=== PATIENT | female | born 1985 ===

== ENCOUNTER → 2020-04-02 | Outpatient (BNVA) | payer OTHER, SELFPAY | PROVIDERS: PCP Internal Medicine; Referring Provider Internal Medicine; Visit Provider Physician Assistant | DX: M25.562 Pain in left knee (principal); M25.462 Effusion, left knee; M25.473 Effusion, unspecified ankle; I10 Essential (primary) hypertension; Z98.890 Other specified postprocedural states | CPT/HCPCS: 99212; 99213 ==

== ENCOUNTER 2020-04-26 14:00 | Outpatient (RCR) | payer OTHER, SELFPAY ==
[2020-03-25 14:06] VITALS: BP 141/96; PULSE 86
--- NOTE | 2020-03-25 14:55 | MHC.PT.EP ---
[facility] [place] Office [place] Office [place] Office [address] Abiodun Irwin [address] [phone] F: [phone] F: [phone] F: [phone] F: [phone] Physical Therapy Plan of Care Date of Evaluation: 03/25/20 Diagnosis: S/P JULIO LEFT LE 02/18/20 Date of Surgery: 02/18/20 REMOVAL OF ORTHOPEDIC HARDWARE Assessment: RHINA IS A PLEASANT 34 YO FEMALE S/P JULIO LEFT LOWER EXTREMITY. UPON EXAM SHE DEMONSTRATES DECREASED KNEE ROM, DECREASED STRENGTH OF LE, ALTERED GAIT, DECREASED BALANCE AND INCREASED PAIN. FUNCTIONAL LIMITATIONS INCLUDE DECREASED TOLERANCE TO STAIRS, SQUATS, STATIC STANDING AND WALKING ON LEVEL AND UNEVEN SURFACES, DISRUPTED SLEEP AND DECREASED PARTICIPATION IN COMMUNITY ACTIVITY. SHE IS AN APPROPRIATE CANDIDATE FOR SKILLED PT TO ADDRESS PHYSICAL IMPAIRMENTS AND PROVIDE A TAILORED PROGRAM OF THERAPEUTIC ACTIVITIES TO PROMOTE OPTIMAL RETURN TO PLOF. Frequency and Duration: The patient will be seen 2 X WEEK FOR 5 WEEKS Short Term Goals: INDEPENDENT IN HEP AND SELF MANAGEMENT OF SYMPTOMS IN 2 WEEKS [employer] Manager Goals: TO DEMONSTRATE FULL KNEE ROM WITHOUT PAIN GREATER THAN 3/10 IN 5 WEEKS TO ASCEND AND DECEND STAIRS WITH RECIPROCAL GAIT AND PAIN NO GREATER THAN 3/10 IN 5 WEEKS TO PERFORM FULL FUNCTIONAL SQUAT WITH APPROPRIATE MECHANICS IN 5 WEEKS Treatment Plan: Modalities to reduce pain, spasms and effusion Manual therapy to restore motion and function Therapeutic exercise to improve strength and flexibility Neuromuscular re-education for posture and balance Therapeutic activities to return to functional activities of daily living Therapeutic Exercise Dynamic Therapeutic Activities Neuromuscular Re-ed Manual Therapies Joint Mobilization Taping Gait Home Exercise Program Patient Education Electrical Stimulation Iontophoresis Ultrasound Hot or Cold Pack Please sign and return to therapist. Thank you for your referral.
--- NOTE | 2020-05-13 14:52 | MHC.PT.DC ---
[facility] [place] Office [place] Office [place] Office [address] Abiodun Irwin [address] [phone] F: [phone] F: [phone] F: [phone] F: [phone] Physical Therapy Discharge Report Diagnosis: S/P JULIO LEFT LE 02/18/20 Date of Surgery: 02/18/20 REMOVAL OF ORTHOPEDIC HARDWARE (TIB/FIB) Date of Evaluation: 03/25/20 Date of Discharge: Treatments to Date: 7 Cancellations to Date: 2 No Shows to Date: 5 Discharge Status: Patient Elected to Stop Visit Non-compliance Discharge Summary: Pt WITH MULTIPLE NO SHOWS AND CANCELS, NO FURTHER VISITS SCHEDULED. STATUS IS UNKNOWN AND SHE IS DCed FROM OUR SERVICES AT THIS TIME. Electronically signed by: KATELYN ROCHA PT, DPT Please sign and return to therapist. Thank you for your referral.
== END 2020-06-04 10:52 | disposition other institution (70) ==
LOC: HO.PT 14:00
PROVIDERS: PCP Internal Medicine; Visit Provider Physician Assistant
DX: Z47.89 Encounter for other orthopedic aftercare (principal)
CPT/HCPCS: 97110; 97116; 97140; 97161; 97530

== ENCOUNTER → 2020-05-24 11:58 | Outpatient (BNVA) | payer OTHER, SELFPAY | PROVIDERS: PCP Internal Medicine; Visit Provider Orthopaedic Surgery | DX: T84.84XA Pain due to internal orthopedic prosthetic devices, implants and grafts, initial encounter (principal); Z98.890 Other specified postprocedural states | CPT/HCPCS: 99212 ==

== ENCOUNTER 2020-07-13 11:17 | Outpatient (REF) | payer OTHER, SELFPAY ==
[2020-07-14 08:41] LABS: Syphilis Screen Nonreactive (Nonreactive)
[2020-07-14 09:11] LABS: HIV AB/AG Nonreactive (Nonreactive); HIV Num 1 0.08 S/CO (0.00-0.99); Hepatitis B Surface Antigen Negative (Negative); ~HepC Num1 0.08 S/CO (0.00-0.79); ~Hepatitis C Antibody Nonreactive (Nonreactive)
[2020-07-14 09:30] LABS: BV Int Neg Control Negative (Negative); BV Int Pos Control Positive (Positive)
[2020-07-15 11:53] LABS: C. trachomatis RNA TMA NOT DETECTED (NOT DETECTED); N. gonorrhoeae RNA TMA NOT DETECTED (NOT DETECTED)
== END 2020-07-13 11:18 | disposition home or self-care (01) ==
LOC: HO.LAB 11:17
PROVIDERS: Advanced Practice Midwife; PCP Internal Medicine; Visit Provider Surgery
DX: N89.8 Other specified noninflammatory disorders of vagina (principal); R10.10 Upper abdominal pain, unspecified; K43.2 Incisional hernia without obstruction or gangrene; Z20.2 Contact with and (suspected) exposure to infections with a predominantly sexual mode of transmission; Z90.49 Acquired absence of other specified parts of digestive tract
CPT/HCPCS: 36415; 86780; 86803; 87340; 87389; 87480; 87491; 87510; 87591; 87660; 99212

== ENCOUNTER 2020-07-30 09:07 | Outpatient (REF) | payer OTHER, SELFPAY ==
[2020-08-05 06:07] LABS: HPV 16 RNA NOT DETECTED (NOT DETECTED); HPV mRNA E6/E7 rflx Detected (Not Detected)
== END 2020-07-30 09:08 | disposition home or self-care (01) ==
LOC: HO.LAB 09:07
PROVIDERS: PCP Internal Medicine; Visit Provider Advanced Practice Midwife
DX: Z01.419 Encounter for gynecological examination (general) (routine) without abnormal findings (principal); Z11.51 Encounter for screening for human papillomavirus (HPV); N87.0 Mild cervical dysplasia; N89.8 Other specified noninflammatory disorders of vagina; B37.3 Candidiasis of vulva and vagina; Z20.2 Contact with and (suspected) exposure to infections with a predominantly sexual mode of transmission
CPT/HCPCS: 36415; 87210; 87624; 87625; 88141; 88142

== ENCOUNTER 2020-08-05 07:39 | Day surgery (SDC) | payer OTHER, SELFPAY ==
[2020-07-30 09:07] VITALS: BMI 32.7
--- NOTE | 2020-08-04 10:11 | HO.ANESPROP2 ---
Documented by User: Catherine Zimmerman 08/04/20 10:12 HPI - Anesthesia Eval Consult details Narrative: 34yo F for Hernia Repair Incisional with Mesh Chronic opioids PMFSH Active Problems Active Problems: All Active Problems (Updated 07/13/20 @ 12:00 by CAROLYNN Duarte) History of removal of retained hardware (Acute) Tibial fracture (Acute) HAROON (generalized anxiety disorder) (Acute) Incisional hernia (Acute) Past Medical History Medical History Anxiety Asthma Depression HTN (hypertension) Insomnia Vertigo Family History Family History Father No problems noted. Mother No problems noted. Surgical History Surgical History History of ankle surgery (~01/2020) History of laparoscopic cholecystectomy History of surgery on arm History of tubal ligation History of umbilical hernia repair (~2018) Social History Social History Alcohol intake: never Smoking Status: Unknown if ever smoked Advance Directives Information Provided: No Current occupational status: unemployed Current occupation: [employer] Gender identity: female Meds Allergies Allergy/AdvReac Type Severity Reaction Status Date / Time No Known Allergies Allergy Verified 07/30/20 09:25 [No Known Allergies*] Home Medications Medication Instructions Recorded Confirmed Last Taken Type albuterol sulfate 90 mcg/actuation 2 inh INHALATION Q4H PRN 03/27/20 07/30/20 Unknown History aerosol inhaler alprazolam 0.5 mg tablet 0.5 mg PO BID PRN 03/27/20 07/30/20 08/05/20 06:45 History amitriptyline 150 mg tablet 150 mg PO BEDTIME 03/27/20 07/30/20 Unknown History clindamycin phosphate 1 % lotion 1 applic TOPICAL BID 03/27/20 07/30/20 Unknown History diclofenac sodium 75 mg 75 mg PO BID 03/27/20 07/30/20 Unknown History tablet,delayed release docusate sodium 100 mg capsule 100 mg PO DAILY 03/27/20 07/30/20 Unknown History lactulose 10 gram/15 mL oral 15 ml PO DAILY 03/27/20 07/30/20 Unknown History solution ondansetron HCl 8 mg tablet 8 mg PO BID 03/27/20 07/30/20 Unknown History oxycodone 5 mg tablet 5 mg PO QID PRN 03/27/20 07/30/20 Unknown History paroxetine HCl 40 mg tablet 40 mg PO DAILY 03/27/20 07/30/20 08/05/20 06:45 History sumatriptan succinate 50 mg tablet 50 mg PO BID PRN 03/27/20 07/30/20 Unknown History topiramate 25 mg tablet 25 mg PO BID 03/27/20 07/30/20 08/05/20 06:45 History topiramate 50 mg tablet mg PO 03/27/20 07/13/20 Unknown History zolpidem 10 mg tablet 10 mg PO BEDTIME PRN 03/27/20 07/30/20 Unknown History Exam Exam Date and Time: August 04, 2020 1011 Height,Weight and Vital Signs: Height 5 ft 6 in Weight 92 kg Pertinent Lab Results Pertinent Lab Results: Laboratory Tests 02/18/20 02/18/20 07:40 07:40 WBC 8.0 Hgb 11.1 L Hct 37.4 Plt Count 270 Sodium 139 Potassium 4.2 Chloride 104 BUN 9 Creatinine 0.86 Assessment and Plan Assessment Anesthesia Assessment: Chart Reviewed Documented by User: Asia Gaston 08/05/20 08:54 [facility] Past Medical History Medical History Anxiety Asthma Depression HTN (hypertension) Insomnia Vertigo Family History Family History Father No problems noted. Mother No problems noted. Family history of problems with anesthesia: No Surgical History Surgical History History of ankle surgery (~01/2020) History of laparoscopic cholecystectomy History of surgery on arm History of tubal ligation History of umbilical hernia repair (~2018) History of Problems with Anesthesia: No Social History Social History Alcohol intake: never Smoking Status: Unknown if ever smoked Advance Directives Information Provided: No Current occupational status: unemployed Current occupation: [employer] Gender identity: female Meds Allergies Allergy/AdvReac Type Severity Reaction Status Date / Time No Known Allergies Allergy Verified 07/30/20 09:25 [No Known Allergies*] Home Medications Medication Instructions Recorded Confirmed Last Taken Type albuterol sulfate 90 mcg/actuation 2 inh INHALATION Q4H PRN 03/27/20 07/30/20 Unknown History aerosol inhaler alprazolam 0.5 mg tablet 0.5 mg PO BID PRN 03/27/20 07/30/20 08/05/20 06:45 History amitriptyline 150 mg tablet 150 mg PO BEDTIME 03/27/20 07/30/20 Unknown History clindamycin phosphate 1 % lotion 1 applic TOPICAL BID 03/27/20 07/30/20 Unknown History diclofenac sodium 75 mg 75 mg PO BID 03/27/20 07/30/20 Unknown History tablet,delayed release docusate sodium 100 mg capsule 100 mg PO DAILY 03/27/20 07/30/20 Unknown History lactulose 10 gram/15 mL oral 15 ml PO DAILY 03/27/20 07/30/20 Unknown History solution ondansetron HCl 8 mg tablet 8 mg PO BID 03/27/20 07/30/20 Unknown History oxycodone 5 mg tablet 5 mg PO QID PRN 03/27/20 07/30/20 Unknown History paroxetine HCl 40 mg tablet 40 mg PO DAILY 03/27/20 07/30/20 08/05/20 06:45 History sumatriptan succinate 50 mg tablet 50 mg PO BID PRN 03/27/20 07/30/20 Unknown History topiramate 25 mg tablet 25 mg PO BID 03/27/20 07/30/20 08/05/20 06:45 History topiramate 50 mg tablet mg PO 03/27/20 07/13/20 Unknown History zolpidem 10 mg tablet 10 mg PO BEDTIME PRN 03/27/20 07/30/20 Unknown History Exam Height,Weight and Vital Signs: Vital Signs Temp Pulse Resp BP Pulse Ox 08/05/20 07:57 98.5 F 83 16 122/78 99 Airway Mallampati Class: II TM Dist: >3cm Neck ROM: Full Heart: RRR Lungs: CTAB Assessment and Plan Assessment Anesthesia Assessment: Anesthesia Plan Discussed and Chart Reviewed Final Anesthetic Review NPO: Yes ASA Class: II Final Preanesthetic Review: No Changes in Pt Med Stat, Meds/Allgs Chart Reviewed, Consent Obtained/Reviewed and Anes Risks/Benef Reviewed Patient Risk: Low Procedure Risk: Low Assessment/Block/Sedation in SS: Assess/Block/Sedation-SS Anesthetic Plan Anesthetic Plan: GA Disposition: Standard PACU
[2020-08-05] VITALS (14 sets, daily range): BP systolic 122–151; BP diastolic 76–98; PULSE 63–97; RESP 14–20; TEMP 36.6–36.9; O2SAT 96–100
--- NOTE | 2020-08-05 10:58 | P.OP_ITS ---
Operative Note Operative Note Date of Service: 08/05/20 Narrative: Preoperative diagnosis: Incisional hernia Postoperative diagnosis: Same Procedure: Repair of incisional hernia with mesh Surgeon: Wilfredo Lloyd MD Perpetual Inventory Clerk: Andra Galaviz PA-C Anesthesia: General LMA Indications for procedure 34-year-old female status post laparoscopic cholecystectomy presenting now with a lump in the upper midline at the epigastric incision consistent with an incisional hernia Operative findings: Incisional hernia at epigastric incision measuring approximately 3.5 cm Estimated blood loss: 10 mL Specimen: None Complications: None Procedure details patient was brought to the OR placed in a supine position. After administering general anesthesia the patient's abdomen was prepped with ChloraPrep and draped in a sterile fashion. A surgical time-out was called the consent confirmed. Patient received preoperative antibiotics and Venodyne boots were in place. Local anesthesia consisting of 0.25% Sensorcaine with epinephrine was infiltrated in the upper midline. Incision was carried down through subcutaneous tissue up to the hernia sac. The hernia sac was then dissected free and the hernia sac reduced into the preperitoneal space. Fascial edges were identified and excised down to healthy tissue. A large preperitoneal space was then created. The defect measured approximately 3.5 cm. An 8 cm round Ventralex mesh was then obtained. The mesh was deployed into the preperitoneal space and secured in 4 quadrants using a 1 Tycron suture. Fascia was then closed over the mesh using [id number] 1 Tycron sutures. Wounds were checked for hemostasis with electrocautery. The wounds were irrigated with saline solution and suctioned dry. Deep subcutaneous tissue was then reapproximated using interrupted 3-0 Polysorb sutures. Dermis was reapproximated using interrupted 3-0 Polysorb sutures. Skin was closed using a running subcuticular 4 0 Polysorb suture. Steri-Strips 2 x 2 gauze and Tegaderm were then applied. The patient tolerated procedure w ell. Sponge, instrument, needle counts reported as correct. Was transported to recovery room in stable condition.
--- NOTE | 2020-08-05 11:00 | P.BOP_ITS ---
Brief Operative Note Date of Service: 08/05/20 <HARI Reyes Last Filed: 08/05/20 11:02> Pre-op diagnosis: INCISIONAL HERNIA <HARI Reyes Last Filed: 08/05/20 11:02> Post-op diagnosis: same <HARI Reyes Last Filed: 08/05/20 11:02> Procedure: Repair of incisional hernia with mesh <HARI Reyes Last Filed: 08/05/20 11:02> Implants: Ventralex 8cm <HARI Reyes Last Filed: 08/05/20 11:02> Surgeon: ISRAEL GUTIÉRREZ MD <HARI Reyes Last Filed: 08/05/20 11:02> Anesthesia: GETA <HARI Reyes Last Filed: 08/05/20 11:02> Manager Of Business Operations: Andra Galaviz <HARI Reyes Last Filed: 08/05/20 11:02> Estimated blood loss (mL): 10 <HARI Reyes Last Filed: 08/05/20 11:02> Pathology: none sent <HARI Reyes Last Filed: 08/05/20 11:02> Condition: stable <HARI Reyes Last Filed: 08/05/20 11:02> Disposition: PACU <HARI Reyes Last Filed: 08/05/20 11:02>
--- NOTE | 2020-08-05 11:04 | MHC.SHP ---
Pre-Procedural Eval Section A The patient is an INPATIENT: No Changes since office visit: Yes Patient answered all questions; No Cold of Flu in the past 2 weeks, No New Medical Problems and No Changes in Medication The History & Physical has been completed within 30 days and I have reviewed it.: Yes Section B Chief Complaint: Incisional Hernia Allergies: Allergies Allergy/AdvReac Type Severity Reaction Status Date / Time No Known Allergies Allergy Verified 07/30/20 09:25 [No Known Allergies*] Plan Diagnosis/Plan: Unchanged I have reviewed the history and physical and performed a pertinent physical examination on my patient. No changes have occurred unless specified.
[2020-08-05] MEDS: fentaNYL citrate/PF 100 MCG/2 ML VIAL 25 MCG IVPUSH ×4 (11:22→11:58)
[2020-08-05] MEDS: oxyCODONE HCl Immed Release 5 MG TABLET PO (11:23)
== END 2020-08-05 13:17 | disposition home or self-care (01) ==
PROVIDERS: PCP Internal Medicine; Visit Provider Surgery
PROC: (CPT 49560; principal; 2020-08-05 09:10)
DX: K43.2 Incisional hernia without obstruction or gangrene (principal); I10 Essential (primary) hypertension; J45.909 Unspecified asthma, uncomplicated; F32.9 Major depressive disorder, single episode, unspecified; Z90.49 Acquired absence of other specified parts of digestive tract; Z98.51 Tubal ligation status; Z79.899 Other long term (current) drug therapy
CPT/HCPCS: 49560; 49568; C1781; J0690; J1100; J1170; J1885; J2250; J2405; J3010

== ENCOUNTER → 2020-08-13 11:31 | Outpatient (BNVA) | payer OTHER, SELFPAY | PROVIDERS: PCP Internal Medicine; Visit Provider Surgery | DX: K43.2 Incisional hernia without obstruction or gangrene (principal) | CPT/HCPCS: 99212 ==

== ENCOUNTER 2020-09-07 13:31 | Outpatient (REF) | payer OTHER, SELFPAY | END 2020-09-07 13:32 | disposition home or self-care (01) | LOC: HO.LAB 13:31 | PROVIDERS: PCP Internal Medicine; Visit Provider Surgery | DX: R87.612 Low grade squamous intraepithelial lesion on cytologic smear of cervix (LGSIL) (principal); Z09 Encounter for follow-up examination after completed treatment for conditions other than malignant neoplasm; Z87.19 Personal history of other diseases of the digestive system | CPT/HCPCS: 57454; 88305; 99212 ==

== ENCOUNTER → 2020-10-13 12:31 | Outpatient (BNVA) | payer OTHER, SELFPAY | PROVIDERS: PCP Internal Medicine; Visit Provider Physician Assistant | DX: M17.32 Unilateral post-traumatic osteoarthritis, left knee (principal) | CPT/HCPCS: 20610; 99212; J1040 ==

== ENCOUNTER 2020-10-13 19:22 | Emergency (ER) | payer OTHER, SELFPAY ==
--- NOTE | 2020-10-13 19:44 | PC.NURSE ---
awaiting hose builder services to arrive to triage
[2020-10-13 20:02] VITALS: BP 142/83; PULSE 83; RESP 19; TEMP 37.2; O2SAT 100; BMI 29.0
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
== END 2020-10-13 22:35 | disposition home or self-care (01) ==
PROVIDERS: Emergency Provider Emergency Medicine Emergency Medical Services; PCP Internal Medicine
DX: F33.1 Major depressive disorder, recurrent, moderate (principal); F41.1 Generalized anxiety disorder; F43.0 Acute stress reaction; Z79.899 Other long term (current) drug therapy
CPT/HCPCS: 99283

== ENCOUNTER 2020-11-23 12:29 | Outpatient (REF) | payer OTHER, SELFPAY ==
--- NOTE | ~2020-11-23 | XR_ITS ---
EXAMINATION: XR ELBOW, RIGHT XR HAND, RIGHT CLINICAL INFORMATION: Pain. COMPARISON: 01/30/2018 TECHNIQUE: Three views of the right hand and 3 views of the right elbow. FINDINGS: There is no evidence of acute fracture or dislocation of the right elbow. No elbow effusion is seen. There is some spurring about the coronoid process. No evidence of calcific epicondylitis. There is no evidence of acute fracture or dislocation of the right hand. Right hand joint spaces are maintained. Previous healed fracture seen involving the right 5th metacarpal head. There is some mild degenerative spurring involving the 5th distal interphalangeal joint. No erosive changes are identified. XR/XR elbow RT 2V IMPRESSION: No significant bony abnormality of the right elbow. No significant degenerative change of the right hand.
--- NOTE | ~2020-11-23 | XR_ITS ---
EXAMINATION: XR ELBOW, RIGHT XR HAND, RIGHT CLINICAL INFORMATION: Pain. COMPARISON: 01/30/2018 TECHNIQUE: Three views of the right hand and 3 views of the right elbow. FINDINGS: There is no evidence of acute fracture or dislocation of the right elbow. No elbow effusion is seen. There is some spurring about the coronoid process. No evidence of calcific epicondylitis. There is no evidence of acute fracture or dislocation of the right hand. Right hand joint spaces are maintained. Previous healed fracture seen involving the right 5th metacarpal head. There is some mild degenerative spurring involving the 5th distal interphalangeal joint. No erosive changes are identified. XR/XR hand RT 2V IMPRESSION: No significant bony abnormality of the right elbow. No significant degenerative change of the right hand.
== END 2020-11-23 12:30 | disposition home or self-care (01) ==
LOC: HO.XRAY 12:29
PROVIDERS: PCP Internal Medicine; Visit Provider Internal Medicine
DX: M25.521 Pain in right elbow (principal); M79.643 Pain in unspecified hand
CPT/HCPCS: 73070; 73120

== ENCOUNTER 2020-12-08 09:23 | Outpatient (REF) | payer OTHER, SELFPAY ==
--- NOTE | ~2020-12-08 | XR_ITS ---
EXAMINATION: LEFT SCAPULA AND LEFT SHOULDER CLINICAL INFORMATION: Left shoulder pain COMPARISON: None TECHNIQUE: Left shoulder 3 views. Scapula one view. FINDINGS: Left shoulder: There is no visible acute fracture, dislocation or subluxation. The glenohumeral and AC joint space is normal. No loose bodies or bony erosive changes seen. The soft tissues are normal. Left scapula: There is no visible fracture or bony abnormality. The soft tissues are normal. XR/XR scapula LT IMPRESSION: Unremarkable left shoulder and left scapula.
--- NOTE | ~2020-12-08 | XR_ITS ---
EXAMINATION: LEFT SCAPULA AND LEFT SHOULDER CLINICAL INFORMATION: Left shoulder pain COMPARISON: None TECHNIQUE: Left shoulder 3 views. Scapula one view. FINDINGS: Left shoulder: There is no visible acute fracture, dislocation or subluxation. The glenohumeral and AC joint space is normal. No loose bodies or bony erosive changes seen. The soft tissues are normal. Left scapula: There is no visible fracture or bony abnormality. The soft tissues are normal. XR/XR shoulder LT min 2V IMPRESSION: Unremarkable left shoulder and left scapula.
[2020-12-08 11:01] LABS: Alanine Aminotransferase 12 U/L (0-31); Albumin Level 4.5 g/dL (3.5-5.0); Alkaline Phosphatase 89 U/L (39-117); Anion Gap 12 (12-20); Aspartate Amino Transferase 14 U/L (5-31); Bilirubin Total 0.3 mg/dL (0.0-1.0); Blood Urea Nitrogen 9 mg/dL (9-16); Calcium 9.8 mg/dL (8.4-10.2); Carbon Dioxide 27 mmol/L (22-29); Chloride 106 mmol/L (96-108); Cholesterol 212 mg/dL; Estimated Glomerular Filt Rate > 60; Glucose Fasting 94 mg/dL (60-99); HDL Cholesterol 77 mg/dL; LDL Cholesterol Calculated 121 mg/dl; Potassium 4.6 mmol/L (3.3-5.1); Sodium 140 mmol/L (135-145); Total Protein 7.5 g/dL (6.5-8.0); Triglycerides 74 mg/dL
== END 2020-12-08 09:24 | disposition home or self-care (01) ==
LOC: HO.LAB 09:23
PROVIDERS: PCP Internal Medicine; Visit Provider Internal Medicine
DX: E78.5 Hyperlipidemia, unspecified (principal); I10 Essential (primary) hypertension
CPT/HCPCS: 36415; 73010; 73030; 80053; 80061

== ENCOUNTER → 2020-12-30 11:45 | Outpatient (BNVA) | payer OTHER, SELFPAY | PROVIDERS: Visit Provider Physician Assistant | DX: M17.32 Unilateral post-traumatic osteoarthritis, left knee (principal) | CPT/HCPCS: 20610; 99212; J1040 ==

== ENCOUNTER → 2021-01-17 10:05 | Outpatient (BNVA) | payer OTHER, SELFPAY | PROVIDERS: Visit Provider Orthopaedic Surgery | DX: M24.812 Other specific joint derangements of left shoulder, not elsewhere classified (principal) | CPT/HCPCS: 99212 ==

== ENCOUNTER 2021-01-27 14:40 | Outpatient (REF) | payer OTHER, SELFPAY ==
--- NOTE | ~2021-01-27 | MR_ITS ---
EXAMINATION: MRI LEFT SHOULDER WITHOUT CONTRAST CLINICAL INFORMATION: Decreased range of motion and left shoulder pain. COMPARISON: Radiograph dated 12/08/2020 TECHNIQUE: MR images of the shoulder were obtained on a 1.5 Sheron high-field strength scanner without intravenous contrast material. Of note, the coronal and axial fat saturated sequences were not actually performed with fat saturation which limits the sensitivity of the study for abnormalities. FINDINGS: ROTATOR CUFF: Intact. No muscle atrophy or fatty infiltration. BICEPS: Normal CORACOACROMIAL ARCH: The undersurface of the acromion is flat with no subacromial spur. The acromioclavicular joint is normal. LABRUM/CAPSULE: Normal. GLENOHUMERAL JOINT/MARROW: Normal. MR/MR shoulder LT wo con IMPRESSION: Normal MRI of the left shoulder. Unfortunately, technical issues on 2 image sequences do significantly limit the sensitivity of the study. Attempts will be made to recall the patient to repeat the appropriate sequences.
[2021-01-28 08:12] LABS: HBc Num1 0.07 S/CO (0.00-0.79); HIV AB/AG Nonreactive (Nonreactive); HIV Num 1 0.06 S/CO (0.00-0.99); Hepatitis B Core Antibody Nonreactive (Nonreactive); ~HepC Num1 0.08 S/CO (0.00-0.79); ~Hepatitis C Antibody Nonreactive (Nonreactive)
[2021-01-28 08:32] LABS: Syphilis Screen Nonreactive (Nonreactive)
== END 2021-01-27 14:41 | disposition home or self-care (01) ==
LOC: HO.MRI 14:40
PROVIDERS: Advanced Practice Midwife; PCP Internal Medicine; Visit Provider Orthopaedic Surgery
DX: Z01.84 Encounter for antibody response examination (principal); Z11.59 Encounter for screening for other viral diseases; Z11.4 Encounter for screening for human immunodeficiency virus [HIV]; M24.812 Other specific joint derangements of left shoulder, not elsewhere classified; R10.2 Pelvic and perineal pain; Z20.2 Contact with and (suspected) exposure to infections with a predominantly sexual mode of transmission
CPT/HCPCS: 36415; 73221; 86704; 86780; 86803; 87389

== ENCOUNTER 2021-01-27 14:43 | Outpatient (REF) | payer OTHER, SELFPAY ==
[2021-01-28 09:53] LABS: CT PCR NOT DETECTED (Not Detect.); NG PCR NOT DETECTED (Not Detect.)
[2021-01-28 10:08] LABS: BV Int Neg Control Negative (Negative); BV Int Pos Control Positive (Positive)
== END 2021-01-27 14:44 | disposition home or self-care (01) ==
LOC: HO.LAB 14:43
PROVIDERS: Advanced Practice Midwife; Visit Provider Advanced Practice Midwife
DX: R10.2 Pelvic and perineal pain (principal); Z20.2 Contact with and (suspected) exposure to infections with a predominantly sexual mode of transmission
CPT/HCPCS: 87480; 87491; 87510; 87591; 87660

== ENCOUNTER 2021-02-08 19:06 | Outpatient (REF) | payer OTHER, SELFPAY | END 2021-02-08 19:07 | disposition home or self-care (01) | LOC: HO.MRI 19:06 | PROVIDERS: Visit Provider Orthopaedic Surgery | DX: Z13.89 Encounter for screening for other disorder (principal) ==

== ENCOUNTER 2021-02-12 03:28 | Emergency (ER) | payer OTHER, SELFPAY ==
[2021-02-12 03:36] VITALS: BP 154/102; PULSE 72; RESP 15; TEMP 36.8; O2SAT 100; BMI 27.3
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
== END 2021-02-12 05:48 | disposition home or self-care (01) ==
PROVIDERS: Emergency Provider Emergency Medicine; PCP Internal Medicine
DX: G89.29 Other chronic pain (principal); M25.562 Pain in left knee; I10 Essential (primary) hypertension; F17.210 Nicotine dependence, cigarettes, uncomplicated; Z79.899 Other long term (current) drug therapy
CPT/HCPCS: 99283; 99284

== ENCOUNTER 2021-07-25 11:06 | Outpatient (REF) | payer OTHER, SELFPAY ==
[2021-07-25 11:37] LABS: MANUAL DIFF FLAG NO
[2021-07-25 12:07] LABS: Basophils Percent Auto 0.4 % (0-2); Eosinophils Absolute Auto 0.1 X10*3/uL (0.0-0.4); Eosinophils Percent Auto 1.2 % (0-4); Hematocrit 34.6 % (37.0-47.0); Hemoglobin 9.6 g/dl (12.0-16.0); Imm Gran Abs Auto 0.03 X10*3/uL (0.00-0.03); Imm Gran Pct Auto 0.4 % (0.0-0.4); Lymphocytes Percent Auto 24.8 % (20-40); Mean Corpuscular HGB Conc 27.7 g/dl (31.0-35.0); Mean Corpuscular Hemoglobin 20.4 pg (27.0-33.0); Mean Corpuscular Volume 73.5 fL (80.0-98.0); Mean Platelet Volume 11.4 fL (9.4-12.3); Monocytes Absolute Auto 0.5 X10*3/uL (0.1-1.2); Monocytes Percent Auto 6.1 % (2-11); Neutrophils Absolute Auto 5.5 x10*3/uL (2.0-8.3); Neutrophils Percent Auto 67.1 % (45-73); Platelet Count 295 X10*3/uL (160-400); Red Blood Count 4.71 X10*6/uL (4.20-5.50); Red Cell Distribution Width 16.6 % (11.0-16.0); White Blood Count 8.2 X10*3/uL (4.8-10.8)
[2021-07-25 12:51] LABS: Alanine Aminotransferase 14 U/L (0-31); Albumin Level 4.3 g/dL (3.5-5.0); Alkaline Phosphatase 67 U/L (39-117); Anion Gap 11 (12-20); Aspartate Amino Transferase 16 U/L (5-31); Bilirubin Total 0.3 mg/dL (0.0-1.0); Blood Urea Nitrogen 13 mg/dL (9-16); Calcium 9.6 mg/dL (8.4-10.2); Carbon Dioxide 26 mmol/L (22-29); Chloride 109 mmol/L (96-108); Estimated Glomerular Filt Rate > 60; Glucose Random 96 mg/dL (60-115); Lipase 18 U/L (8-78); Potassium 4.4 mmol/L (3.3-5.1); Sodium 142 mmol/L (135-145); Total Protein 7.2 g/dL (6.5-8.0)
== END 2021-07-25 11:07 | disposition home or self-care (01) ==
LOC: HO.LAB 11:06
PROVIDERS: PCP Internal Medicine; Visit Provider Nurse Practitioner Acute Care
DX: R10.9 Unspecified abdominal pain (principal)
CPT/HCPCS: 36415; 80053; 83690; 85025

== ENCOUNTER 2021-08-01 13:52 | Outpatient (REF) | payer OTHER, SELFPAY ==
[2021-08-02 03:00] LABS: CT PCR NOT DETECTED (Not Detect.); NG PCR NOT DETECTED (Not Detect.)
[2021-08-02 09:05] LABS: BV Int Neg Control Negative (Negative); BV Int Pos Control Positive (Positive)
[2021-08-02 09:09] LABS: HBsAGNum1 0.16 S/CO (0.00-0.99); Hepatitis B Surface Antigen Negative (Negative); ~HepC Num1 0.09 S/CO (0.00-0.79); ~Hepatitis C Antibody Nonreactive (Nonreactive)
[2021-08-02 09:14] LABS: HIV AB/AG Nonreactive (Nonreactive); HIV Num 1 0.06 S/CO (0.00-0.99)
[2021-08-04 12:36] LABS: HPV mRNA E6/E7 rflx Detected (Not Detected)
[2021-08-04 12:37] LABS: HPV 16 RNA NOT DETECTED (NOT DETECTED)
[2021-08-05 08:44] LABS: Syphilis Screen Nonreactive (Nonreactive)
== END 2021-08-01 13:53 | disposition home or self-care (01) ==
LOC: HO.LAB 13:52
PROVIDERS: PCP Internal Medicine; Visit Provider Advanced Practice Midwife
DX: Z01.419 Encounter for gynecological examination (general) (routine) without abnormal findings (principal); Z11.51 Encounter for screening for human papillomavirus (HPV); Z11.4 Encounter for screening for human immunodeficiency virus [HIV]; Z20.2 Contact with and (suspected) exposure to infections with a predominantly sexual mode of transmission; Z87.42 Personal history of other diseases of the female genital tract
CPT/HCPCS: 36415; 86780; 86803; 87340; 87389; 87480; 87491; 87510; 87591; 87624; 87625; 87660; 88142

== ENCOUNTER 2021-08-02 16:13 | Outpatient (REF) | payer OTHER, SELFPAY ==
--- NOTE | ~2021-08-02 | US_ITS ---
EXAMINATION: US ABDOMEN COMPLETE CLINICAL INFORMATION: Abdominal pain. COMPARISON: Abdominal ultrasound dated from 09/02/2019. TECHNIQUE: Real-time imaging of the abdominal viscera. FINDINGS: PANCREAS: Normal. ABDOMINAL AORTA: The proximal, mid, and distal segments are normal in caliber. INFERIOR VENA CAVA: Visualized portions are normal. LIVER: The liver measures 17 cm in length and demonstrates increased parenchymal echogenicity which limits evaluation of focal lesions. However, accounting for these limitations no focal abnormalities are identified. No intrahepatic biliary ductal dilatation. GALLBLADDER: Normal. The gallbladder is physiologically distended without evidence of stones, sludge, polyps, wall thickening or pericholecystic fluid. COMMON BILE DUCT: Normal in caliber measuring 0.4 cm in diameter. RIGHT KIDNEY: Normal. No hydronephrosis. No renal calculi or focal parenchymal lesions. The kidney measures 10 cm in maximum dimension. LEFT KIDNEY: Normal. No hydronephrosis. No renal calculi or focal parenchymal lesions. The kidney measures 10 cm in maximum dimension. SPLEEN: Normal. The spleen measures 9 cm in maximum dimension. FREE FLUID: None. US/US abdomen complete IMPRESSION: Mild hepatomegaly with increased parenchymal echogenicity suggesting the presence of hepatic steatosis and/or hepatocellular disease. Otherwise, normal examination.
== END 2021-08-02 16:14 | disposition home or self-care (01) ==
LOC: HO.US 16:13
PROVIDERS: Visit Provider Nurse Practitioner Acute Care
DX: R10.9 Unspecified abdominal pain (principal)
CPT/HCPCS: 76700

== ENCOUNTER 2021-08-12 10:48 | Emergency (ER) | payer OTHER, SELFPAY ==
[2021-08-12 11:03] VITALS: BP 178/92; PULSE 61; RESP 16; TEMP 36.7; O2SAT 100; BMI 28.7
[2021-08-12 12:14] LABS: MANUAL DIFF FLAG NO
[2021-08-12 12:17] LABS: Basophils Percent Auto 0.2 % (0-2); Eosinophils Absolute Auto 0.1 X10*3/uL (0.0-0.4); Eosinophils Percent Auto 1.3 % (0-4); Hematocrit 33.3 % (37.0-47.0); Hemoglobin 9.3 g/dl (12.0-16.0); Imm Gran Abs Auto 0.02 X10*3/uL (0.00-0.03); Imm Gran Pct Auto 0.2 % (0.0-0.4); Lymphocytes Absolute Auto 2.4 X10*3/uL (1.2-4.9); Mean Corpuscular HGB Conc 27.9 g/dl (31.0-35.0); Mean Corpuscular Hemoglobin 20.3 pg (27.0-33.0); Mean Corpuscular Volume 72.7 fL (80.0-98.0); Mean Platelet Volume 11.2 fL (9.4-12.3); Monocytes Absolute Auto 0.7 X10*3/uL (0.1-1.2); Neutrophils Absolute Auto 5.3 x10*3/uL (2.0-8.3); Neutrophils Percent Auto 62.3 % (45-73); Platelet Count 319 X10*3/uL (160-400); Red Blood Count 4.58 X10*6/uL (4.20-5.50); Red Cell Distribution Width 17.1 % (11.0-16.0); White Blood Count 8.5 X10*3/uL (4.8-10.8)
[2021-08-12 12:31] LABS: Anion Gap 10 (12-20); Blood Urea Nitrogen 10 mg/dL (9-16); Calcium 9.3 mg/dL (8.4-10.2); Carbon Dioxide 27 mmol/L (22-29); Chloride 107 mmol/L (96-108); Creatinine Clr Calc Pharmacy 110.7; Estimated Glomerular Filt Rate > 60; Glucose Random 93 mg/dL (60-115); Sodium 140 mmol/L (135-145)
[2021-08-12 16:09] VITALS: BP 159/92; PULSE 68; RESP 16; TEMP 36.9; O2SAT 100
[2021-08-12 16:12] VITALS: BP 172/97; PULSE 54
[2021-08-12 16:14] VITALS: BP 175/96; PULSE 58
--- NOTE | 2021-08-12 16:14 | ECG_ITS ---
Test Reason : DIZZYNESS Blood Pressure : / mmHG Vent. Rate : 059 BPM Atrial Rate : 059 BPM P-R Int : 172 ms QRS Dur : 082 ms QT Int : 414 ms P-R-T Axes : -01 038 017 degrees QTc Int : 409 ms Sinus bradycardia Otherwise normal ECG When compared with ECG of 09-AUG-2018 09:04, No significant change was found Referred By: Zara Lawrence Electronically Signed By:FABIOLA VILLEGAS MD
--- NOTE | 2021-08-12 16:14 | ED.RECABL ---
HPI - Recheck/Abnormal Lab/Rx General Chief Complaint: Recheck/Abnormal Lab/Rx Stated Complaint: DIZZY SWEATING LOW BLOOD COUNT Time Seen by Provider: 08/12/21 16:06 Source: patient Mode of arrival: ambulatory Limitations: no limitations History of Present Illness HPI narrative: Patient comes to the emergency room complaining of low hemoglobin. Patient states she got a phone call from her primary care physician today. Patient states he was approximately 9.6. Patient states that she has noted that sometimes she feels dizzy, occasionally sees spots. Patient denies any recent bleeding. Patient states that she has been told that she is anemic, patient recently started taking oral iron Related Data Home Medications Medication Instructions Recorded Confirmed alprazolam 0.5 mg tablet 0.5 mg PO BID PRN 03/27/20 08/01/21 sumatriptan succinate 50 mg tablet 50 mg PO BID PRN 03/27/20 08/01/21 topiramate 50 mg tablet mg PO 03/27/20 08/01/21 sertraline 100 mg tablet 100 mg PO DAILY 11/23/20 08/01/21 trazodone 150 mg tablet 150 mg PO BEDTIME 11/23/20 08/01/21 zolpidem 10 mg tablet 10 mg PO BEDTIME PRN 02/21/21 08/01/21 Previous Rx's Medication Instructions Recorded blood pressure test kit-medium #1 ea 08/12/20 ibuprofen 600 mg tablet 600 mg PO Q8H PRN #90 tab 09/21/20 lactulose 10 gram/15 mL oral 15 ml PO DAILY #1350 ml 02/03/21 solution naproxen 500 mg tablet (Naprosyn) 500 mg PO BID #20 tab 02/12/21 albuterol sulfate 90 mcg/actuation 2 puff INHALATION Q6H PRN 30 Days 03/21/21 aerosol inhaler (ProAir HFA) #8.5 g docusate sodium 250 mg capsule 250 mg PO DAILY PRN 30 Days #30 cap 05/26/21 hydroxyzine HCl 25 mg tablet 25 mg PO DAILY 30 Days #30 tab 06/29/21 ferrous sulfate 325 mg (65 mg 325 mg PO DAILY 90 Days #90 tab 07/25/21 iron) tablet omeprazole 20 mg capsule,delayed 20 mg PO DAILY #30 cap 07/25/21 release ondansetron 4 mg disintegrating 4 mg PO Q8H PRN #14 tab 07/25/21 tablet metronidazole 500 mg tablet 500 mg PO BID 7 Days #14 tab 08/02/21 hydrochlorothiazide 25 mg tablet 25 mg PO DAILY #30 tab 08/12/21 Allergies Allergy/AdvReac Type Severity Reaction Status Date / Time No Known Allergies Allergy Verified 08/01/21 14:05 [No Known Allergies*] Review of Systems Review of Systems: Constitutional : No Weight loss, No Fever, No Chills, No Night Sweats, No Fatigue, No Malaise ENT/Mouth : No Hearing loss, No Ear Pain, No Nasal Congestion, No Sinus Pain, No Hoarseness, No sore throat, No Rhinorrhea, No Swallowing Difficulty Eyes: No Eye Pain, No Swelling, No Redness, No Foreign Body, No Discharge, No Vision Changes Cardiovascular : No Chest Pain, No SOB, No Dyspnea on Exertion, No Orthopnea, No Edema, No Palpitations Respiratory : No Cough, No Sputum, No Wheezing, No Smoke Exposure, No Dyspnea Gastrointestinal : No Nausea, No Vomiting, No Diarrhea, No Constipation, No abdominal Pain, No Hematochezia, No Melena Genitourinary : no irregular bleeding, No Dysuria, No Urinary Frequency, No Hematuria, No Urinary Incontinence, No Urgency, No Flank Pain, No Urinary Flow Changes, No Hesitancy Musculoskeletal : No joint pain, No Myalgias, No Joint Swelling Skin : No Skin Lesions, No rash Neuro : No Weakness, No Numbness, No Paresthesias, No Loss of Consciousness, patient reports occasional episodes of dizziness and seeing spots, at this time none are present. No Headache Psych : Complaining of feeling anxious, denies depression, no SI or HI Heme/Lymph: Recent diagnosis of anemia, currently taking iron Endocrine : No Polyuria, No Polydipsia, No Temperature Intolerance [facility] Past Medical History Medical History Anxiety Anxiety and depression Asthma Depression Essential hypertension Hand pain HTN (hypertension) Insomnia Iron deficiency anemia Left shoulder pain Lumbar pain Migraines Moderate recurrent major depression Neck pain Right elbow pain Vertigo Surgical History History of ankle surgery (~01/2020) History of hernia surgery History of laparoscopic cholecystectomy History of surgery on arm History of tubal ligation History of umbilical hernia repair (~2019) Post-operative state Family History Family History Father Mental health disorder Mother No problems noted. Social History Social History Housing: Apartment Alcohol intake: current Alcohol intake frequency: holidays/special occasions only Patient Tobacco Use Status: Current someday Tobacco user Tobacco use type: Cigarette Cigarettes Per Day: 1 e-Cigarette/Vaping Use: Never Used Second Hand Smoke Exposure: Yes Advance Directives: No Advance Directives Information Provided: Yes service: No Current occupational status: disabled Gender identity: Female Physical Exam Vital Signs: Vital Signs: Last Vital Signs Temp 98.5 F 08/12/21 16:09 Pulse 60 08/12/21 16:15 Resp 16 08/12/21 16:09 BP 170/87 H 08/12/21 16:15 Pulse Ox 100 08/12/21 16:09 BMI result Body Mass Index 28.7 Const: Other: Appearance: Alert. Oriented X3. No acute distress. Anxious Eyes: Pupils equal, round and reactive to light. ENT: Pharynx normal. Neck: Normal inspection. Neck supple. No lymph nodes noted. No crepitus CVS: Normal heart rate and rhythm. Pulses normal. Normal S1 and S2, blood pressure 154 systolic Respiratory: No respiratory distress. Breath sounds normal. No Wheezing. No rales Abdomen: Soft and nontender. No rigidity. No distention. Skin: Skin warm and dry. Mild diffuse pallor. Normal skin turgor. Extremities: No lower extremity edema. No Lacerations. No Rash Neuro: Oriented X 3. No motor deficit. No sensory deficit. Moving all extermities. No slurred speech. Course Course Course Narrative: Patient's other static vitals are negative. EKG within normal limits. Patient is anemic but she really nausea, recently started on iron supplements. While patient was in the emergency room, patient's blood pressure was multiple times in the 170s. Patient states that whenever she goes to her PCP or the dentist, she is told that her blood pressures in the 150s. I discussed with the patient that she should be taking her blood pressure in different settings, such as a pharmacy or a shopping center. And then make a log and discuss it with her primary care physician. Patient states that she would prefer to be started on blood pressure medication. MDM - Recheck/Abnormal Lab/Rx Lab Data Result diagrams: 08/12/21 12:10 08/12/21 12:10 Labs: Lab Results 08/12/21 08/12/21 Range/Units 12:10 12:10 WBC 8.5 (4.8-10.8) X10*3/uL RBC 4.58 (4.20-5.50) X10*6/uL Hgb 9.3 L (12.0-16.0) g/dl Hct 33.3 L (37.0-47.0) % MCV 72.7 L (80.0-98.0) fL MCH 20.3 L (27.0-33.0) pg MCHC 27.9 L (31.0-35.0) g/dl RDW 17.1 H (11.0-16.0) % Plt Count 319 (160-400) X10*3/uL MPV 11.2 (9.4-12.3) fL Immature Gran % (Auto) 0.2 (0.0-0.4) % Neut % (Auto) 62.3 (45-73) % Lymph % (Auto) 28.0 (20-40) % [place] % (Auto) 8.0 (2-11) % Eos % (Auto) 1.3 (0-4) % Baso % (Auto) 0.2 (0-2) % Lymph # (Auto) 2.4 (1.2-4.9) X10*3/uL [place] # (Auto) 0.7 (0.1-1.2) X10*3/uL Eos # (Auto) 0.1 (0.0-0.4) X10*3/uL Baso # (Auto) 0.0 (0.0-0.2) X10*3/uL Abs Immat Gran (auto) 0.02 (0.00-0.03) X10*3/uL Absolute Neuts (auto) 5.3 (2.0-8.3) x10*3/uL Absolute Nucleated RBC 0.000 (0.0-0.012) X10*3/uL Nucleated RBC % (auto) 0.0 (0.0-0.2) /100WBC Sodium 140 (135-145) mmol/L Potassium 4.0 (3.3-5.1) mmol/L Chloride 107 (96-108) mmol/L Carbon Dioxide 27 (22-29) mmol/L Anion Gap 10 L (12-20) BUN 10 (9-16) mg/dL Creatinine 0.76 (0.5-1.4) mg/dL Estim Creat Clear Calc 110.7 Estimated GFR > 60 Random Glucose 93 (60-115) mg/dL Calcium 9.3 (8.4-10.2) mg/dL Discharge Plan Discharge Clinical Impression: Hypertension, Dizziness Patient Disposition: Home, Self-Care Instructions: Hypertension (ED) Additional Instructions: Please follow-up with your primary care physician tomorrow. If you have any worsening or new symptoms, please return to the emergency room or call 911 Prescriptions: New hydrochlorothiazide 25 mg tablet 25 mg PO DAILY Qty: 30 0RF No Action (DME) blood pressure test kit-medium Kit See Rx Instructions .ROUTE .MEDSUPPLY Qty: 1 0RF Rx Instructions: As directed ibuprofen 600 mg tablet 600 mg PO Q8H PRN (Reason: for pain) Qty: 90 1RF lactulose 10 gram/15 mL solution 15 ml PO DAILY Qty: 1350 1RF albuterol sulfate [ProAir HFA] 90 mcg/actuation HFA aerosol inhaler 2 puff inhalation Q6H PRN (Reason: shortness of breath or wheezing) 30 Days Qty: 8.5 6RF docusate sodium 250 mg capsule 250 mg PO DAILY PRN (Reason: constipation) 30 Days Qty: 30 3RF hydroxyzine HCl 25 mg tablet 25 mg PO DAILY 30 Days Qty: 30 2RF ferrous sulfate 325 mg (65 mg iron) tablet 325 mg PO DAILY 90 Days Qty: 90 0RF metronidazole 500 mg tablet 500 mg PO BID 7 Days Qty: 14 0RF naproxen [Naprosyn] 500 mg tablet 500 mg PO BID Qty: 20 0RF trazodone 150 mg tablet 150 mg PO BEDTIME 0RF sertraline 100 mg tablet 100 mg PO DAILY 0RF zolpidem 10 mg tablet 10 mg PO BEDTIME PRN0RF omeprazole 20 mg capsule,delayed release(DR/EC) 20 mg PO DAILY Qty: 30 0RF ondansetron 4 mg tablet,disintegrating 4 mg PO Q8H PRN (Reason: nausea and vomiting) Qty: 14 0RF sumatriptan succinate 50 mg tablet 50 mg PO BID PRN (Reason: Migraine Headache) 0RF topiramate 50 mg tablet PO 0RF alprazolam 0.5 mg tablet 0.5 mg PO BID PRN (Reason: Anxiety) 0RF
[2021-08-12 16:15] VITALS: BP 170/87; PULSE 60
== END 2021-08-12 16:53 | disposition home or self-care (01) ==
PROVIDERS: Emergency Provider Emergency Medicine; PCP Internal Medicine
DX: I10 Essential (primary) hypertension (principal); R42 Dizziness and giddiness; F17.200 Nicotine dependence, unspecified, uncomplicated
CPT/HCPCS: 36415; 80048; 85025; 93005; 99283; 99284

== ENCOUNTER 2021-09-14 08:45 | Outpatient (REF) | payer OTHER, SELFPAY ==
[2021-09-14 08:57] LABS: MANUAL DIFF FLAG NO
[2021-09-14 09:38] LABS: Basophils Percent Auto 0.2 % (0-2); Eosinophils Absolute Auto 0.1 X10*3/uL (0.0-0.4); Eosinophils Percent Auto 1.6 % (0-4); Hematocrit 41.8 % (37.0-47.0); Hemoglobin 11.8 g/dl (12.0-16.0); Imm Gran Abs Auto 0.02 X10*3/uL (0.00-0.03); Imm Gran Pct Auto 0.2 % (0.0-0.4); Lymphocytes Absolute Auto 1.9 X10*3/uL (1.2-4.9); Lymphocytes Percent Auto 23.1 % (20-40); Mean Corpuscular HGB Conc 28.2 g/dl (31.0-35.0); Mean Corpuscular Hemoglobin 21.9 pg (27.0-33.0); Mean Corpuscular Volume 77.7 fL (80.0-98.0); Monocytes Absolute Auto 0.6 X10*3/uL (0.1-1.2); Monocytes Percent Auto 7.6 % (2-11); Neutrophils Absolute Auto 5.6 x10*3/uL (2.0-8.3); Neutrophils Percent Auto 67.3 % (45-73); Platelet Count 236 X10*3/uL (160-400); Red Blood Count 5.38 X10*6/uL (4.20-5.50); Red Cell Distribution Width 20.4 % (11.0-16.0); White Blood Count 8.3 X10*3/uL (4.8-10.8)
[2021-09-14 10:03] LABS: Alanine Aminotransferase 18 U/L (0-31); Albumin Level 4.3 g/dL (3.5-5.0); Alkaline Phosphatase 59 U/L (39-117); Anion Gap 14 (12-20); Aspartate Amino Transferase 17 U/L (5-31); Bilirubin Total 0.4 mg/dL (0.0-1.0); Blood Urea Nitrogen 12 mg/dL (9-16); Calcium 9.9 mg/dL (8.4-10.2); Carbon Dioxide 26 mmol/L (22-29); Chloride 105 mmol/L (96-108); Cholesterol 202 mg/dL; Estimated Glomerular Filt Rate > 60; Glucose Fasting 96 mg/dL (60-99); HDL Cholesterol 68 mg/dL; Iron 57 mcg/dL (30-160); LDL Cholesterol Calculated 122 mg/dl; Percent Iron Saturation 13 % (15-50); Sodium 141 mmol/L (135-145); Total Iron Binding Capacity 439 mcg/dL (228-428); Total Protein 7.1 g/dL (6.5-8.0); Triglycerides 62 mg/dL; Unsaturated Iron Binding 382 ug/dL
== END 2021-09-14 08:46 | disposition home or self-care (01) ==
LOC: HO.LAB 08:45
PROVIDERS: PCP Internal Medicine; Visit Provider Internal Medicine
DX: D64.9 Anemia, unspecified (principal); E78.5 Hyperlipidemia, unspecified; G43.009 Migraine without aura, not intractable, without status migrainosus
CPT/HCPCS: 36415; 80053; 80061; 83540; 85025

== ENCOUNTER 2021-09-19 08:41 | Outpatient (REF) | payer OTHER, SELFPAY | END 2021-09-19 08:42 | disposition home or self-care (01) | LOC: HO.LAB 08:41 | PROVIDERS: PCP Internal Medicine; Visit Provider Obstetrics & Gynecology | DX: R87.810 Cervical high risk human papillomavirus (HPV) DNA test positive (principal); R87.610 Atypical squamous cells of undetermined significance on cytologic smear of cervix (ASC-US) | CPT/HCPCS: 57454; 81025; 88305 ==

== ENCOUNTER 2021-09-30 13:29 | Outpatient (REF) | payer OTHER, SELFPAY ==
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
== END 2021-09-30 13:30 | disposition home or self-care (01) ==
LOC: HO.XRAY 13:29
PROVIDERS: PCP Internal Medicine; Visit Provider Nurse Practitioner Family
DX: M54.50 Low back pain, unspecified (principal); M54.2 Cervicalgia; M62.838 Other muscle spasm
CPT/HCPCS: 72040; 72100; 99202

== ENCOUNTER → 2021-10-04 14:15 | Outpatient (BNVA) | payer OTHER, SELFPAY | PROVIDERS: PCP Internal Medicine; Visit Provider Obstetrics & Gynecology | DX: Z13.89 Encounter for screening for other disorder (principal) ==

== ENCOUNTER → 2021-10-07 09:39 | Outpatient (BNVA) | payer OTHER, SELFPAY | PROVIDERS: PCP Internal Medicine; Visit Provider Nurse Practitioner Family | DX: Z13.89 Encounter for screening for other disorder (principal) ==

== ENCOUNTER 2021-10-27 18:35 | Outpatient (REF) | payer OTHER, SELFPAY ==
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
== END 2021-10-27 18:36 | disposition home or self-care (01) ==
LOC: HO.MRI 18:35
PROVIDERS: Visit Provider Nurse Practitioner Family
DX: R93.7 Abnormal findings on diagnostic imaging of other parts of musculoskeletal system (principal); M54.2 Cervicalgia
CPT/HCPCS: 72141

== ENCOUNTER 2022-01-09 08:27 | Outpatient (REF) | payer OTHER, SELFPAY | END 2022-01-09 08:28 | disposition home or self-care (01) | LOC: HO.HOSX 08:27 | PROVIDERS: Visit Provider Physician Assistant | DX: Z13.89 Encounter for screening for other disorder (principal) ==

== ENCOUNTER 2022-01-13 06:50 | Emergency (ER) | payer OTHER, SELFPAY ==
[2022-01-13 06:59] VITALS: BP 122/81; PULSE 63; RESP 18; TEMP 36.8; O2SAT 99; BMI 28.3
[2022-01-13 07:28] LABS: Strep A Nucleic Acid Negative (Negative)
[2022-01-13 07:32] LABS: COVID-19 Test Negative (Negative)
[2022-01-13 08:26] LABS: IDNOW Serial# 9DB6401D; Influenza A Negative (Negative); Influenza B2 Negative (Negative)
--- NOTE | 2022-01-13 08:34 | ED.URI ---
HPI - URI/Sore Throat General Chief Complaint: Upper Respiratory Symptoms Stated Complaint: sore throat, stuffy nose Time Seen by Provider: 01/13/22 08:23 Source: patient Mode of arrival: ambulatory Limitations: no limitations History of Present Illness HPI Narrative: 36-year-old female who has a history of asthma presents with 1 day of sore throat. Daughter is here with similar symptoms. She denies any associated fever, cough, shortness of breath, chest pain, abdominal pain, vomiting, diarrhea, skin rash, neck pain or stiffness. Patient has had 3 COVID vaccinations Related Data Home Medications Medication Instructions Recorded Confirmed alprazolam 0.5 mg tablet 0.5 mg PO BID PRN Anxiety 03/27/20 09/30/21 sumatriptan succinate 50 mg tablet 50 mg PO BID PRN Migraine Headache 03/27/20 09/30/21 sertraline 100 mg tablet 100 mg PO DAILY 11/23/20 09/30/21 trazodone 150 mg tablet 150 mg PO BEDTIME 11/23/20 09/30/21 zolpidem 10 mg tablet 10 mg PO BEDTIME PRN 02/21/21 09/30/21 topiramate 50 mg tablet 50 mg PO DAILY PRN 09/30/21 09/30/21 Previous Rx's Medication Instructions Recorded blood pressure test kit-medium #1 ea 08/12/20 ibuprofen 600 mg tablet 600 mg PO Q8H PRN for pain #90 tabs 09/21/20 naproxen 500 mg tablet (Naprosyn) 500 mg PO BID #20 tabs 02/12/21 hydrochlorothiazide 25 mg tablet 25 mg PO DAILY #30 tabs 08/12/21 lactulose 10 gram/15 mL oral 15 ml PO DAILY #1,350 mL 09/21/21 solution omeprazole 20 mg capsule,delayed 20 mg PO DAILY #90 caps 09/21/21 release albuterol sulfate 90 mcg/actuation 2 puff inhalation Q6H PRN 10/06/21 aerosol inhaler (ProAir HFA) shortness of breath or wheezing 30 days #8.5 grams docusate sodium 250 mg capsule 250 mg PO DAILY PRN constipation 10/22/21 30 days #30 caps hydroxyzine HCl 25 mg tablet 25 mg PO DAILY 30 days #30 tabs 10/22/21 tizanidine 4 mg tablet 4 mg PO BID PRN muscle spasticity 11/30/21 30 days #60 tabs ferrous sulfate 325 mg (65 mg 325 mg PO DAILY 90 days #90 tabs 01/02/22 iron) tablet ondansetron 4 mg disintegrating 4 mg PO Q8H PRN nausea and 01/02/22 tablet vomiting #14 tabs Allergies Allergy/AdvReac Type Severity Reaction Status Date / Time No Known Allergies Allergy Verified 11/30/21 12:12 [No Known Allergies*] Review of Systems Review of Systems: Yes all other systems are reviewed and are negative Constitutional: Constitutional: Reports no additional constitutional complaints, Denies body ache(s), Denies chills, Denies fever(s), Denies headache(s) and Denies weakness Eyes: Eyes: Reports no additional eye complaints and Denies change in vision ENT: Reports system reviewed and no additional complaints, except as documented, Denies dizziness, Denies headache(s), Denies nasal congestion, Denies nasal discharge, Denies neck pain and Reports sore throat Cardiovascular: Cardiovascular: Reports no additional cardiovascular complaints, Denies chest pain, Denies leg edema and Denies dyspnea Respiratory: Respiratory: Reports no additional respiratory complaints, Denies cough and Denies dyspnea Gastrointestinal: Gastrointestinal: Reports no additional gastrointestinal complaints, Denies abdominal pain, Denies diarrhea, Denies nausea and Denies vomiting Genitourinary: Genitourinary: Reports no additional female genitourinary complaints and Denies urinary incontinence Musculoskeletal: Musculoskeletal: Reports no additional musculoskeletal complaints, Denies back pain, Denies arthralgias, Denies joint swelling, Denies neck pain, Denies numbness and Denies tingling Integumentary/Breasts: Skin/Breast: Reports system reviewed and no additional complaints, except as docu and Denies rash Neurologic: Reports system reviewed and no additional complaints, except as documented, Denies Abnormal speech present, Denies dizziness, Denies headache(s), Denies numbness, Denies tingling and Denies weakness PMFSH Past Medical History Source: old records reviewed and nursing notes reviewed Medical History Anxiety Anxiety and depression Asthma Cervical disc disorder at C6-C7 level with radiculopathy Cervicalgia Depression Essential hypertension Essential hypertension Hand pain HTN (hypertension) Insomnia Iron deficiency anemia Left shoulder pain Lumbar pain Migraines Moderate recurrent major depression Neck pain Right elbow pain Ulnar nerve compression Vertigo Surgical History History of ankle surgery (~01/2020) History of hernia surgery History of laparoscopic cholecystectomy History of surgery on arm History of tubal ligation History of umbilical hernia repair (~2018) Post-operative state Family History Family History Father Mental health disorder Mother No problems noted. Social History Social History Housing: Apartment Alcohol intake: current Alcohol intake frequency: holidays/special occasions only Patient Tobacco Use Status: Current someday Tobacco user Tobacco use type: Cigarette Cigarettes Per Day: 1 e-Cigarette/Vaping Use: Never Used Second Hand Smoke Exposure: Yes Advance Directives: No Advance Directives Information Provided: No service: No Current occupational status: disabled Gender identity: Female Physical Exam Vital Signs: Vital Signs: Last Vital Signs Temp 98.2 F 01/13/22 06:59 Pulse 63 01/13/22 06:59 Resp 18 01/13/22 06:59 BP 122/81 01/13/22 06:59 Pulse Ox 99 01/13/22 06:59 O2 Del Method 01/13/22 06:59 BMI result Body Mass Index 28.3 Const: General: cooperative, healthy appearing, comfortable and no acute distress Orientation/consciousness: patient oriented x3 Limitations: no limitations HEENT: Head: Yes normal to inspection Ears: hearing grossly normal bilaterally and TM's normal bilaterally General nose exam: Normal external nose present Face and sinus: Yes normal facial exam Mouth: Normal oral and palatal mucosa present Throat: Yes posterior oropharynx normal, Yes tonsils normal and Yes uvula midline Eyes: General: appearance normal, both eyes and all related structures Pupils: Equal, round and reactive pupils present Neck: Neck: Yes normal visual inspection, Yes full ROM, Yes no lymphadenopathy and Yes no meningeal signs Chest: Chest palpation & inspection: normal inspection of the chest Resp: Effort & Inspection: normal respiratory effort Auscultation: clear to auscultation bilaterally Cardio: Rate: regular rate Rhythm: regular rhythm Peripheral pulses: Peripheral pulses 2+ throughout GI: Inspection: Yes normal to inspection Palpation (GI): Soft to palpation and nontender Auscultation: normal bowel sounds Back/Spine/Pelvis: Thoracic/Lumbar Spine: thoracic and lumbar spine normal to inspection Skin: General skin exam: no rashes or lesions noted Neuro: General: patient oriented x3, no meningeal signs, no focal motor deficits and normal sensation to monofilament Cranial nerves: Yes Equal, round and reactive pupils present Cognition (Neuro): normal cognition Speech: No Abnormal speech present Gait exam (Neuro): Normal gait present Motor exam (neuro): 5/5 motor strength present throughout Extrem: General: Yes normal to inspection Course Course Course Narrative: Testing for flu, COVID and strep are negative. Likely viral syndrome. Patient appears well overall. Tolerating p.o.. Recommend supportive care at home. Reviewed worrisome signs and symptoms of when to return to the emergency department. Comfortable discharge home. MDM - URI/Sore Throat MDM Narrative Medical decision making narrative: 36-year-old female who is here with 1 day of sore throat with sick contact at home. Overall exam is benign. Vitals are stable. Will check testing for flu, COVID and strep Medical Records Attestation: I reviewed the patient's medical records. Lab Data Attestation: I reviewed the patient's lab results. Labs: Lab Results 01/13/22 01/13/22 01/13/22 Range/Units 07:03 07:03 07:04 COVID-19 (QAMAR) Negative (Negative) COVID-19 Clin Com See Note Influenza Type A (KAT) Negative (Negative) Influenza Type B (KAT) Negative (Negative) Influenza A & B Note See Note S. pyogenes GrpA KAT Negative (Negative) Discharge Plan Discharge Clinical Impression: Viral infection Patient Disposition: Home, Self-Care Instructions: Viral Syndrome (ED) Additional Instructions: Testing for flu, covid and strep are negative Salt water gargles Motrin or tylenol as needed for pain or fever Increase fluids at home Prescriptions: No Action (DME) blood pressure test kit-medium Kit See Rx Instructions .ROUTE .MEDSUPPLY Qty: 1 0RF Rx Instructions: As directed ibuprofen 600 mg tablet 600 mg PO Q8H PRN (Reason: for pain) Qty: 90 1RF omeprazole 20 mg capsule,delayed release(DR/EC) 20 mg PO DAILY Qty: 90 0RF lactulose 10 gram/15 mL solution 15 ml PO DAILY Qty: 1350 1RF albuterol sulfate [ProAir HFA] 90 mcg/actuation HFA aerosol inhaler 2 puff inhalation Q6H PRN (Reason: shortness of breath or wheezing) 30 Days Qty: 8.5 6RF docusate sodium 250 mg capsule 250 mg PO DAILY PRN (Reason: constipation) 30 Days Qty: 30 3RF hydroxyzine HCl 25 mg tablet 25 mg PO DAILY 30 Days Qty: 30 2RF ondansetron 4 mg tablet,disintegrating 4 mg PO Q8H PRN (Reason: nausea and vomiting) Qty: 14 0RF ferrous sulfate 325 mg (65 mg iron) tablet 325 mg PO DAILY 90 Days Qty: 90 0RF naproxen [Naprosyn] 500 mg tablet 500 mg PO BID Qty: 20 0RF hydrochlorothiazide 25 mg tablet 25 mg PO DAILY Qty: 30 0RF trazodone 150 mg tablet 150 mg PO BEDTIME sertraline 100 mg tablet 100 mg PO DAILY zolpidem 10 mg tablet 10 mg PO BEDTIME PRN sumatriptan succinate 50 mg tablet 50 mg PO BID PRN (Reason: Migraine Headache) alprazolam 0.5 mg tablet 0.5 mg PO BID PRN (Reason: Anxiety) topiramate 50 mg tablet 50 mg PO DAILY PRN tizanidine 4 mg tablet 4 mg PO BID PRN (Reason: muscle spasticity) 30 Days Qty: 60 6RF Referrals: Maryse Meyers MD [Primary Care Provider] - 1 week (as needed) Stand Alone Forms: Work/School Release Interventions: ED Discharge Assessment Last Done: 01/13/22 09:00 Discharge Date/Time: 01/13/22 09:00
== END 2022-01-13 09:00 | disposition home or self-care (01) ==
PROVIDERS: Emergency Provider Emergency Medicine Emergency Medical Services; PCP Internal Medicine
DX: B34.9 Viral infection, unspecified (principal); Z20.822 Contact with and (suspected) exposure to COVID-19; J02.9 Acute pharyngitis, unspecified; I10 Essential (primary) hypertension; F17.210 Nicotine dependence, cigarettes, uncomplicated
CPT/HCPCS: 87502; 87635; 87651; 99283

== ENCOUNTER 2022-01-25 12:34 | Outpatient (REF) | payer OTHER, SELFPAY ==
--- NOTE | ~2022-01-25 | XR_ITS ---
EXAMINATION: XR TIBIA AND FIBULA, LEFT CLINICAL INFORMATION: Pain COMPARISON: Previous x-ray December 2019 TECHNIQUE: AP and lateral views of the left tibia and fibula were obtained. FINDINGS: The orthopedic hardware in the tibia has been removed. There are old healed fractures of the distal shafts of the tibia and fibula. Joint spaces are normal. There is mild soft tissue calcification in the medial lower leg. Soft tissues are otherwise normal. XR/XR tibia fibula LT 2V IMPRESSION: Old healed fractures of the distal shafts of the tibia and fibula.
== END 2022-01-25 12:35 | disposition home or self-care (01) ==
LOC: HO.HOSX 12:34
PROVIDERS: Visit Provider Physician Assistant
DX: M17.12 Unilateral primary osteoarthritis, left knee (principal); M79.605 Pain in left leg
CPT/HCPCS: 73590; 99212

== ENCOUNTER 2022-03-09 08:32 | Outpatient (REF) | payer OTHER, SELFPAY ==
--- NOTE | 2022-03-09 08:34 | EMG_ITS ---
Left median and ulnar motor and sensory studies were performed. Left radial sensory studies and median and lateral antecubital sensory studies were performed, and paraspinal muscles were tested with a needle. IMPRESSION: This study did not reveal any significant abnormality to suggest radiculopathy or entrapment neuropathy. MD CHRISTINE Mckinley/KIRSTEN / [phone]
[2022-03-09 09:19] LABS: MANUAL DIFF FLAG NO
[2022-03-09 09:39] LABS: Basophils Percent Auto 0.4 % (0-2); Eosinophils Absolute Auto 0.1 X10*3/uL (0.0-0.4); Eosinophils Percent Auto 1.1 % (0-4); Hematocrit 36.6 % (37.0-47.0); Hemoglobin 10.1 g/dl (12.0-16.0); Imm Gran Abs Auto 0.03 X10*3/uL (0.00-0.03); Imm Gran Pct Auto 0.4 % (0.0-0.4); Lymphocytes Absolute Auto 1.7 X10*3/uL (1.2-4.9); Lymphocytes Percent Auto 23.8 % (20-40); Mean Corpuscular HGB Conc 27.6 g/dl (31.0-35.0); Mean Corpuscular Hemoglobin 19.5 pg (27.0-33.0); Mean Corpuscular Volume 70.8 fL (80.0-98.0); Mean Platelet Volume 10.7 fL (9.4-12.3); Monocytes Absolute Auto 0.6 X10*3/uL (0.1-1.2); Monocytes Percent Auto 7.8 % (2-11); Neutrophils Absolute Auto 4.7 x10*3/uL (2.0-8.3); Neutrophils Percent Auto 66.5 % (45-73); Platelet Count 285 X10*3/uL (160-400); Red Blood Count 5.17 X10*6/uL (4.20-5.50); White Blood Count 7.1 X10*3/uL (4.8-10.8)
[2022-03-09 10:12] LABS: Alanine Aminotransferase 12 U/L (0-31); Albumin Level 4.3 g/dL (3.5-5.0); Alkaline Phosphatase 66 U/L (39-117); Anion Gap 14 (12-20); Aspartate Amino Transferase 16 U/L (5-31); Bilirubin Total 0.2 mg/dL (0.0-1.0); Blood Urea Nitrogen 9 mg/dL (9-16); Calcium 9.7 mg/dL (8.4-10.2); Carbon Dioxide 25 mmol/L (22-29); Chloride 106 mmol/L (96-108); Cholesterol 186 mg/dL; Estimated Glomerular Filt Rate > 60; Glucose Fasting 88 mg/dL (60-99); HDL Cholesterol 71 mg/dL; Iron 20 mcg/dL (30-160); LDL Cholesterol Calculated 105 mg/dl; Percent Iron Saturation 4 % (15-50); Potassium 4.6 mmol/L (3.3-5.1); Sodium 140 mmol/L (135-145); Total Iron Binding Capacity 519 mcg/dL (228-428); Total Protein 7.3 g/dL (6.5-8.0); Triglycerides 52 mg/dL; Unsaturated Iron Binding 499 ug/dL
[2022-03-09 10:33] LABS: Vitamin D 25-OH Total 18.6 ng/mL (>30)
== END 2022-03-09 08:33 | disposition home or self-care (01) ==
LOC: HO.NEURO 08:32
PROVIDERS: Absent Provider Internal Medicine; PCP Internal Medicine; Visit Provider Anesthesiology
DX: Z00.00 Encounter for general adult medical examination without abnormal findings (principal); G56.20 Lesion of ulnar nerve, unspecified upper limb; M50.123 Cervical disc disorder at C6-C7 level with radiculopathy; D64.9 Anemia, unspecified; E55.9 Vitamin D deficiency, unspecified; E78.5 Hyperlipidemia, unspecified
CPT/HCPCS: 36415; 80053; 80061; 82306; 83540; 85025; 95886; 95910

== ENCOUNTER → 2022-03-23 10:43 | Outpatient (BNVA) | payer OTHER, SELFPAY | PROVIDERS: PCP Internal Medicine; Visit Provider Anesthesiology | DX: M54.2 Cervicalgia (principal) | CPT/HCPCS: 99212 ==

== ENCOUNTER 2022-04-25 05:56 | Outpatient (REF) | payer OTHER, SELFPAY ==
--- NOTE | ~2022-04-25 | FL_ITS ---
EXAMINATION: XR FLUOROSCOPY WITH IMAGES CLINICAL INFORMATION: M50.123 - Cervical disc disorder at C6-C7 level with radiculopathy COMPARISON: Cervical spine radiographs 09/30/2021 TECHNIQUE: Fluoroscopy performed by Dr. Paco Pitts. Fluoroscopy time: 0.5 minutes. Cumulative Dose: 2.62 mGy. DAP: 0.715 Gy-cm2. Images: 4. FINDINGS: There are spinal needles overlying 3 adjacent mid left lateral masses cervical spine. There is contrast in the paraspinal soft tissues and nerve sheaths. No visible vascular communication. FL/FL guidance in treatment room IMPRESSION: Fluoroscopy for pain management procedure.
== END 2022-04-25 05:57 | disposition home or self-care (01) ==
LOC: CF 05:56
PROVIDERS: Visit Provider Anesthesiology
DX: M50.123 Cervical disc disorder at C6-C7 level with radiculopathy (principal)
CPT/HCPCS: 64490; 64491; J2795; J3300

== ENCOUNTER 2022-05-15 08:53 | Outpatient (REF) | payer OTHER, SELFPAY ==
[2022-05-15 13:56] LABS: CT PCR NOT DETECTED (Not Detect.); NG PCR NOT DETECTED (Not Detect.)
[2022-05-16 12:04] LABS: BV Int Neg Control Negative (Negative); BV Int Pos Control Positive (Positive)
[2022-05-25 04:59] LABS: HPV 16 RNA NOT DETECTED (NOT DETECTED); HPV mRNA E6/E7 rflx Detected (Not Detected)
== END 2022-05-15 08:54 | disposition home or self-care (01) ==
LOC: HO.LNP 08:53
PROVIDERS: PCP Internal Medicine; Visit Provider Advanced Practice Midwife
DX: Z12.4 Encounter for screening for malignant neoplasm of cervix (principal); Z11.51 Encounter for screening for human papillomavirus (HPV); R87.610 Atypical squamous cells of undetermined significance on cytologic smear of cervix (ASC-US); R87.810 Cervical high risk human papillomavirus (HPV) DNA test positive; Z20.2 Contact with and (suspected) exposure to infections with a predominantly sexual mode of transmission; L30.8 Other specified dermatitis; B37.2 Candidiasis of skin and nail
CPT/HCPCS: 87480; 87491; 87510; 87591; 87624; 87625; 87660; 88142; 99212

== ENCOUNTER 2022-07-27 08:56 | Outpatient (REF) | payer OTHER, SELFPAY ==
[2022-07-27 09:12] LABS: MANUAL DIFF FLAG NO
[2022-07-27 09:41] LABS: Basophils Percent Auto 0.5 % (0-2); Eosinophils Absolute Auto 0.1 X10*3/uL (0.0-0.4); Eosinophils Percent Auto 1.4 % (0-4); Hematocrit 31.7 % (37.0-47.0); Hemoglobin 8.7 g/dl (12.0-16.0); Imm Gran Abs Auto 0.02 X10*3/uL (0.00-0.03); Imm Gran Pct Auto 0.4 % (0.0-0.4); Lymphocytes Absolute Auto 1.4 X10*3/uL (1.2-4.9); Lymphocytes Percent Auto 23.8 % (20-40); Mean Corpuscular HGB Conc 27.4 g/dl (31.0-35.0); Mean Corpuscular Hemoglobin 19.2 pg (27.0-33.0); Mean Corpuscular Volume 70.1 fL (80.0-98.0); Mean Platelet Volume 11.9 fL (9.4-12.3); Monocytes Absolute Auto 0.4 X10*3/uL (0.1-1.2); Monocytes Percent Auto 6.5 % (2-11); Neutrophils Absolute Auto 3.9 x10*3/uL (2.0-8.3); Neutrophils Percent Auto 67.4 % (45-73); Platelet Count 249 X10*3/uL (160-400); Red Blood Count 4.52 X10*6/uL (4.20-5.50); Red Cell Distribution Width 17.7 % (11.0-16.0); White Blood Count 5.7 X10*3/uL (4.8-10.8)
[2022-07-27 10:08] LABS: Iron 23 mcg/dL (30-160); Percent Iron Saturation 6 % (15-50); Total Iron Binding Capacity 411 mcg/dL (228-428); Unsaturated Iron Binding 388 ug/dL
[2022-07-27 10:11] LABS: Vitamin D 25-OH Total 15.2 ng/mL (>30)
[2022-07-28 08:49] LABS: HBsAGNum1 0.24 S/CO (0.00-0.99); HIV AB/AG Nonreactive (Nonreactive); HIV Num 1 0.05 S/CO (0.00-0.99); Hepatitis B Surface Antigen Negative (Negative); ~HepC Num1 0.07 S/CO (0.00-0.79); ~Hepatitis C Antibody Nonreactive (Nonreactive)
[2022-07-28 08:54] LABS: Syphilis Screen Nonreactive (Nonreactive)
[2022-07-29 19:49] LABS: TS Negative Control Passed; TS Panel A 4; TS Panel B 2; TS Positive Control Passed; TSpotTB Negative (Negative)
== END 2022-07-27 08:57 | disposition home or self-care (01) ==
LOC: HO.LAB 08:56
PROVIDERS: Absent Provider Advanced Practice Midwife; PCP Internal Medicine; Visit Provider Internal Medicine
DX: Z11.1 Encounter for screening for respiratory tuberculosis (principal); Z11.4 Encounter for screening for human immunodeficiency virus [HIV]; R87.610 Atypical squamous cells of undetermined significance on cytologic smear of cervix (ASC-US); R87.810 Cervical high risk human papillomavirus (HPV) DNA test positive; Z20.2 Contact with and (suspected) exposure to infections with a predominantly sexual mode of transmission; E55.9 Vitamin D deficiency, unspecified; D64.9 Anemia, unspecified
CPT/HCPCS: 36415; 82306; 83540; 85025; 86481; 86780; 86803; 87340; 87389

== ENCOUNTER 2022-08-09 11:28 | Emergency (ER) | payer OTHER, SELFPAY ==
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
[2022-08-09 11:53] VITALS: BP 149/87; PULSE 60; RESP 17; TEMP 36.6; O2SAT 99; BMI 27.1
[2022-08-09] MEDS: Ketorolac Tromethamine 30 MG/ML VIAL IM (12:34)
[2022-08-09] MEDS: oxyCODONE HCl Immed Release 5 MG TABLET PO (12:35)
== END 2022-08-09 12:48 | disposition home or self-care (01) ==
PROVIDERS: Emergency Provider Student in an Organized Health Care Education/Training Program; PCP Internal Medicine
DX: M54.50 Low back pain, unspecified (principal); I10 Essential (primary) hypertension; Z79.899 Other long term (current) drug therapy; F17.210 Nicotine dependence, cigarettes, uncomplicated
CPT/HCPCS: 96372; 99283; 99284; J1885

== ENCOUNTER 2022-10-10 15:14 | Outpatient (REF) | payer OTHER, SELFPAY ==
[2022-10-11 09:39] LABS: BV Int Neg Control Negative (Negative); BV Int Pos Control Positive (Positive)
[2022-10-14 21:14] LABS: HPV 16 RNA NOT DETECTED (NOT DETECTED); HPV mRNA E6/E7 rflx Detected (Not Detected)
== END 2022-10-10 15:15 | disposition home or self-care (01) ==
LOC: HO.LNP 15:14
PROVIDERS: PCP Internal Medicine; Visit Provider Advanced Practice Midwife
DX: Z01.419 Encounter for gynecological examination (general) (routine) without abnormal findings (principal); R87.810 Cervical high risk human papillomavirus (HPV) DNA test positive; R87.610 Atypical squamous cells of undetermined significance on cytologic smear of cervix (ASC-US)
CPT/HCPCS: 87480; 87510; 87624; 87625; 87660; 88142

== ENCOUNTER 2022-10-10 15:59 | Outpatient (REF) | payer OTHER, SELFPAY ==
[2022-10-11 04:04] LABS: Syphilis Screen Nonreactive (Nonreactive)
[2022-10-11 09:40] LABS: CT PCR NOT DETECTED (Not Detect.); NG PCR NOT DETECTED (Not Detect.)
[2022-10-11 13:09] LABS: HIV AB/AG Nonreactive (Nonreactive); HIV Num 1 0.05 S/CO (0.00-0.99); Hepatitis B Surface Antigen Negative (Negative); ~HepC Num1 0.11 S/CO (0.00-0.79); ~Hepatitis C Antibody Nonreactive (Nonreactive)
== END 2022-10-10 16:00 | disposition home or self-care (01) ==
LOC: HO.LAB 15:59
PROVIDERS: PCP Internal Medicine; Visit Provider Advanced Practice Midwife
DX: Z01.419 Encounter for gynecological examination (general) (routine) without abnormal findings (principal); Z11.4 Encounter for screening for human immunodeficiency virus [HIV]; Z20.2 Contact with and (suspected) exposure to infections with a predominantly sexual mode of transmission
CPT/HCPCS: 0353U; 86780; 86803; 87340; 87389

== ENCOUNTER 2022-12-02 12:57 | Emergency (ER) | payer OTHER, SELFPAY ==
--- NOTE | ~2022-12-02 | XR_ITS ---
EXAMINATION: XR CHEST CLINICAL INFORMATION: Shortness of breath and asthma. COMPARISON: 03/20/2019 chest radiographs. TECHNIQUE: 2 views of the chest were obtained. FINDINGS: No significant abnormality is noted involving the heart, lungs, mediastinum, bony thorax or soft tissues. XR/XR chest 2V IMPRESSION: No acute cardiopulmonary process.
[2022-12-02 13:27] VITALS: BP 137/87; PULSE 79; RESP 18; TEMP 36.8; O2SAT 100; BMI 28.1
--- NOTE | 2022-12-02 13:28 | ED.ASTHMA ---
HPI - Asthma General Stated Complaint: asthma Related Data Home Medications Medication Instructions Recorded Confirmed alprazolam 0.5 mg tablet 0.5 mg PO BID PRN Anxiety 03/27/20 10/17/22 sumatriptan succinate 50 mg tablet 50 mg PO BID PRN Migraine Headache 03/27/20 10/17/22 sertraline 100 mg tablet 100 mg PO DAILY 11/23/20 10/17/22 trazodone 150 mg tablet 150 mg PO BEDTIME 11/23/20 10/17/22 zolpidem 10 mg tablet 10 mg PO BEDTIME PRN 02/21/21 10/17/22 topiramate 50 mg tablet 50 mg PO DAILY PRN 09/30/21 10/17/22 clonazepam 1 mg tablet 1 mg PO BID 05/15/22 10/17/22 hydroxyzine HCl 25 mg tablet 25 mg PO DAILY 05/15/22 10/17/22 Previous Rx's Medication Instructions Recorded blood pressure test kit-medium #1 ea 08/12/20 ibuprofen 600 mg tablet 600 mg PO Q8H PRN for pain #90 tabs 09/21/20 omeprazole 20 mg capsule,delayed 20 mg PO DAILY #90 caps 09/21/21 release tizanidine 4 mg tablet 4 mg PO BID PRN muscle spasticity 11/30/21 30 days #60 tabs clotrimazole 1 % vaginal cream 1 appful vaginal BEDTIME #45 grams 05/15/22 albuterol sulfate 90 mcg/actuation 2 puff inhalation Q6H PRN 05/19/22 aerosol inhaler (ProAir HFA) shortness of breath or wheezing 30 days #8.5 grams cholecalciferol (vitamin D3) 50 50 mcg PO DAILY 90 days #90 caps 07/27/22 mcg (2,000 unit) capsule acetaminophen 500 mg capsule 1,000 mg PO Q8H PRN pain #30 caps 08/09/22 cyclobenzaprine 5 mg tablet 5 mg PO TID PRN muscle spasm #14 08/09/22 tabs ibuprofen 600 mg tablet 600 mg PO Q6H PRN pain #20 tabs 08/09/22 oxycodone 5 mg tablet 5 mg PO Q6H PRN pain #14 tabs 08/09/22 oxycodone 5 mg tablet 5 mg PO Q6H PRN pain #14 tabs 08/09/22 docusate sodium 250 mg capsule 250 mg PO DAILY PRN constipation 08/15/22 30 days #30 caps lactulose 10 gram/15 mL oral 15 ml PO DAILY #1,350 mL 09/29/22 solution metronidazole 0.75 % (37.5 mg/5 1 appful vaginal BEDTIME 5 days 10/12/22 gram) vaginal gel #70 grams hydrochlorothiazide 12.5 mg tablet 12.5 mg PO DAILY 30 days #30 tabs 10/17/22 ondansetron 4 mg disintegrating 4 mg PO Q8H PRN nausea and 11/02/22 tablet vomiting #14 tabs ferrous sulfate 325 mg (65 mg 325 mg PO TID 90 days #270 tabs 11/20/22 iron) tablet Allergies Allergy/AdvReac Type Severity Reaction Status Date / Time No Known Allergies Allergy Verified 10/17/22 15:30 [No Known Allergies*] [facility] Past Medical History Medical History Anxiety Anxiety and depression Asthma Cervical disc disorder at C6-C7 level with radiculopathy Cervicalgia Depression Essential hypertension Essential hypertension Hand pain HTN (hypertension) Insomnia Iron deficiency anemia Left shoulder pain Lumbar pain Migraines Moderate recurrent major depression Neck pain Right elbow pain Ulnar nerve compression Vertigo Surgical History History of ankle surgery (~01/2020) History of hernia surgery History of laparoscopic cholecystectomy History of tubal ligation History of umbilical hernia repair (~2018) Post-operative state S/P hardware removal Family History Family History Father Mental health disorder Hypertension Colon cancer Mother Hypertension Maternal Aunt Breast cancer Social History Social History Housing: Apartment Alcohol intake: current Alcohol intake frequency: holidays/special occasions only Alcohol type: wine Patient Tobacco Use Status: Current someday Tobacco user Tobacco use type: Cigarette Cigarettes Per Day: 1 e-Cigarette/Vaping Use: Never Used Second Hand Smoke Exposure: Yes service: No Current occupational status: disabled Gender identity: Female Cognitive needs: No Hearing needs: No Vision needs: No Course Course Course Narrative: RME - 37 y/o female with history of asthma, anemia, migraines, anxiety, depression who presents to the ER for evaluation of worsening SOB and asthma for the last few days which she thinks is due to the poor air quality. Has been using inhaler with no relief. VSS in triage. Plan: CXR Discharge Plan Discharge Prescriptions: No Action (DME) blood pressure test kit-medium Kit See Rx Instructions .ROUTE .MEDSUPPLY Qty: 1 0RF Rx Instructions: As directed ibuprofen 600 mg tablet 600 mg PO Q8H PRN (Reason: for pain) Qty: 90 1RF omeprazole 20 mg capsule,delayed release(DR/EC) 20 mg PO DAILY Qty: 90 0RF albuterol sulfate [ProAir HFA] 90 mcg/actuation HFA aerosol inhaler 2 puff inhalation Q6H PRN (Reason: shortness of breath or wheezing) 30 Days Qty: 8.5 6RF cholecalciferol (vitamin D3) 50 mcg (2,000 unit) capsule 50 mcg PO DAILY 90 Days Qty: 90 1RF docusate sodium 250 mg capsule 250 mg PO DAILY PRN (Reason: constipation) 30 Days Qty: 30 3RF lactulose 10 gram/15 mL solution 15 ml PO DAILY Qty: 1350 1RF metronidazole 0.75 % (37.5mg/5 gram) gel 1 appful vaginal BEDTIME 5 Days Qty: 70 0RF ondansetron 4 mg tablet,disintegrating 4 mg PO Q8H PRN (Reason: nausea and vomiting) Qty: 14 0RF ferrous sulfate 325 mg (65 mg iron) tablet 325 mg PO TID 90 Days Qty: 270 0RF acetaminophen 500 mg capsule 1,000 mg PO Q8H PRN (Reason: pain) Qty: 30 0RF ibuprofen 600 mg tablet 600 mg PO Q6H PRN (Reason: pain) Qty: 20 0RF cyclobenzaprine 5 mg tablet 5 mg PO TID PRN (Reason: muscle spasm) Qty: 14 0RF Rx Instructions: This medication causes drowsiness, use with caution no driving for 8 hours after taking oxycodone 5 mg tablet 5 mg PO Q6H PRN (Reason: pain) Qty: 14 0RF Rx Instructions: Partial Fill upon patient request. oxycodone 5 mg tablet 5 mg PO Q6H PRN (Reason: pain) Qty: 14 0RF Rx Instructions: Partial Fill upon patient request. trazodone 150 mg tablet 150 mg PO BEDTIME sertraline 100 mg tablet 100 mg PO DAILY zolpidem 10 mg tablet 10 mg PO BEDTIME PRN hydrochlorothiazide 12.5 mg tablet 12.5 mg PO DAILY 30 Days Qty: 30 2RF sumatriptan succinate 50 mg tablet 50 mg PO BID PRN (Reason: Migraine Headache) alprazolam 0.5 mg tablet 0.5 mg PO BID PRN (Reason: Anxiety) topiramate 50 mg tablet 50 mg PO DAILY PRN clonazepam 1 mg tablet 1 mg PO BID hydroxyzine HCl 25 mg tablet 25 mg PO DAILY clotrimazole 1 % cream 1 appful vaginal BEDTIME Qty: 45 1RF tizanidine 4 mg tablet 4 mg PO BID PRN (Reason: muscle spasticity) 30 Days Qty: 60 6RF
[2022-12-02 15:48] VITALS: PULSE 67; RESP 18; O2SAT 99
[2022-12-02] MEDS: Albuterol/Iprat 2.5/0.5MG 3 ML AMPUL.NEB INHALE (15:48)
[2022-12-02] MEDS: predniSONE 20 MG TABLET 60 MG PO (15:49)
--- NOTE | 2022-12-02 16:28 | ED_ITS ---
HPI - Asthma General Chief Complaint: Asthma Stated Complaint: asthma Time Seen by Provider: 12/02/22 15:01 History of Present Illness HPI Narrative: Patient complains of wheezing typical of prior asthma with brief relief from 2 puffs of her inhaler but then wheezing come back several hours later She has had no recent illness no fever no chills no cough with sputum The wheezing began several days ago Related Data Home Medications Medication Instructions Recorded Confirmed alprazolam 0.5 mg tablet 0.5 mg PO BID PRN Anxiety 03/27/20 10/17/22 sumatriptan succinate 50 mg tablet 50 mg PO BID PRN Migraine Headache 03/27/20 10/17/22 sertraline 100 mg tablet 100 mg PO DAILY 11/23/20 10/17/22 trazodone 150 mg tablet 150 mg PO BEDTIME 11/23/20 10/17/22 zolpidem 10 mg tablet 10 mg PO BEDTIME PRN 02/21/21 10/17/22 topiramate 50 mg tablet 50 mg PO DAILY PRN 09/30/21 10/17/22 clonazepam 1 mg tablet 1 mg PO BID 05/15/22 10/17/22 hydroxyzine HCl 25 mg tablet 25 mg PO DAILY 05/15/22 10/17/22 Previous Rx's Medication Instructions Recorded blood pressure test kit-medium #1 ea 08/12/20 ibuprofen 600 mg tablet 600 mg PO Q8H PRN for pain #90 tabs 09/21/20 omeprazole 20 mg capsule,delayed 20 mg PO DAILY #90 caps 09/21/21 release tizanidine 4 mg tablet 4 mg PO BID PRN muscle spasticity 11/30/21 30 days #60 tabs clotrimazole 1 % vaginal cream 1 appful vaginal BEDTIME #45 grams 05/15/22 albuterol sulfate 90 mcg/actuation 2 puff inhalation Q6H PRN 05/19/22 aerosol inhaler (ProAir HFA) shortness of breath or wheezing 30 days #8.5 grams cholecalciferol (vitamin D3) 50 50 mcg PO DAILY 90 days #90 caps 07/27/22 mcg (2,000 unit) capsule acetaminophen 500 mg capsule 1,000 mg PO Q8H PRN pain #30 caps 08/09/22 cyclobenzaprine 5 mg tablet 5 mg PO TID PRN muscle spasm #14 08/09/22 tabs ibuprofen 600 mg tablet 600 mg PO Q6H PRN pain #20 tabs 08/09/22 oxycodone 5 mg tablet 5 mg PO Q6H PRN pain #14 tabs 08/09/22 oxycodone 5 mg tablet 5 mg PO Q6H PRN pain #14 tabs 08/09/22 docusate sodium 250 mg capsule 250 mg PO DAILY PRN constipation 08/15/22 30 days #30 caps lactulose 10 gram/15 mL oral 15 ml PO DAILY #1,350 mL 09/29/22 solution metronidazole 0.75 % (37.5 mg/5 1 appful vaginal BEDTIME 5 days 10/12/22 gram) vaginal gel #70 grams hydrochlorothiazide 12.5 mg tablet 12.5 mg PO DAILY 30 days #30 tabs 10/17/22 ondansetron 4 mg disintegrating 4 mg PO Q8H PRN nausea and 11/02/22 tablet vomiting #14 tabs ferrous sulfate 325 mg (65 mg 325 mg PO TID 90 days #270 tabs 11/20/22 iron) tablet albuterol sulfate 5 mg/mL(0.5 %) 5 mg inhalation Q6H PRN shortness 12/02/22 solution for nebulization of breath or wheezing #300 mL albuterol sulfate 90 mcg/actuation 2 puff inhalation Q4-6H PRN 12/02/22 aerosol inhaler shortness of breath or wheezing #8.5 grams cetirizine 10 mg tablet 10 mg PO DAILY PRN allergy 12/02/22 symptoms #14 tabs prednisone 20 mg tablet 60 mg PO DAILY 4 days #12 tabs 12/02/22 Allergies Allergy/AdvReac Type Severity Reaction Status Date / Time No Known Allergies Allergy Verified 10/17/22 15:30 [No Known Allergies*] [facility] Past Medical History Source: nursing notes reviewed Medical History Anxiety Anxiety and depression Asthma Cervical disc disorder at C6-C7 level with radiculopathy Cervicalgia Depression Essential hypertension Essential hypertension Hand pain HTN (hypertension) Insomnia Iron deficiency anemia Left shoulder pain Lumbar pain Migraines Moderate recurrent major depression Neck pain Right elbow pain Ulnar nerve compression Vertigo Surgical History History of ankle surgery (~01/2020) History of hernia surgery History of laparoscopic cholecystectomy History of tubal ligation History of umbilical hernia repair (~2018) Post-operative state S/P hardware removal Family History Family History Father Mental health disorder Hypertension Colon cancer Mother Hypertension Maternal Aunt Breast cancer Social History Social History Housing: Apartment Alcohol intake: current Alcohol intake frequency: holidays/special occasions only Alcohol type: wine Patient Tobacco Use Status: Current someday Tobacco user Tobacco use type: Cigarette Cigarettes Per Day: 1 e-Cigarette/Vaping Use: Never Used Second Hand Smoke Exposure: Yes Advance Directives: No Advance Directives Information Provided: No service: No Current occupational status: disabled Gender identity: Female Cognitive needs: No Hearing needs: No Vision needs: No Physical Exam Vital Signs: Vital Signs: Last Vital Signs Temp 98.3 F 12/02/22 13:27 Pulse 67 12/02/22 15:48 Resp 18 12/02/22 15:48 BP 137/87 12/02/22 13:27 Pulse Ox 100 12/02/22 13:27 O2 Del Method Room Air 12/02/22 13:27 BMI result Body Mass Index 28.1 General appearance no distress The eyes no redness or discharge The nose no sinus tenderness The pharynx is clear no redness swelling or exudate voice normal Neck is supple Chest had decreased breath sounds bilaterally no audible wheeze No respiratory distress Heart no murmur Abdomen soft nontender Extremities no calf tenderness or swelling no edema Skin no rash Course Course Course Narrative: Patient got 1 treatment in the ER with full relief of her shortness of breath Repeat exam air sounds are now full and not diminish, no wheezing no respiratory distress Patient is discharged with treatment for asthma and allergies Chest x-ray was negative, and well-appearing patient breathing easily was dis charged Medications Administered Discontinued Medications Generic Name Dose Route Start Last Admin Trade Name Freq PRN Reason Stop Dose Admin Albuterol/Ipratropium 3 ml 12/02/22 15:25 12/02/22 15:48 Albuterol/Iprat 2.5/0.5mg 3 Ml Ampul.Neb INHALE 12/02/22 15:26 3 ml ONCE ONE Administration Prednisone 60 mg 12/02/22 15:25 12/02/22 15:49 Prednisone 20 Mg Tablet PO 12/02/22 15:26 60 mg ONCE ONE Administration Discharge Plan Discharge Clinical Impression: Asthma Patient Disposition: Home, Self-Care Additional Instructions: I prescribed medicine for asthma and for allergies Follow with primary doctor Return to the ER any time for difficulty breathing any worse condition or any concerns Prescriptions: New albuterol sulfate 90 mcg/actuation HFA aerosol inhaler 2 puff inhalation Q4-6H PRN (Reason: shortness of breath or wheezing) Qty: 8.5 0RF albuterol sulfate 5 mg/mL solution for nebulization 5 mg inhalation Q6H PRN (Reason: shortness of breath or wheezing) Qty: 300 0RF cetirizine 10 mg tablet 10 mg PO DAILY PRN (Reason: allergy symptoms) Qty: 14 0RF prednisone 20 mg tablet 60 mg PO DAILY 4 Days Qty: 12 0RF No Action (DME) blood pressure test kit-medium Kit See Rx Instructions .ROUTE .MEDSUPPLY Qty: 1 0RF Rx Instructions: As directed ibuprofen 600 mg tablet 600 mg PO Q8H PRN (Reason: for pain) Qty: 90 1RF omeprazole 20 mg capsule,delayed release(DR/EC) 20 mg PO DAILY Qty: 90 0RF albuterol sulfate [ProAir HFA] 90 mcg/actuation HFA aerosol inhaler 2 puff inhalation Q6H PRN (Reason: shortness of breath or wheezing) 30 Days Qty: 8.5 6RF cholecalciferol (vitamin D3) 50 mcg (2,000 unit) capsule 50 mcg PO DAILY 90 Days Qty: 90 1RF docusate sodium 250 mg capsule 250 mg PO DAILY PRN (Reason: constipation) 30 Days Qty: 30 3RF lactulose 10 gram/15 mL solution 15 ml PO DAILY Qty: 1350 1RF metronidazole 0.75 % (37.5mg/5 gram) gel 1 appful vaginal BEDTIME 5 Days Qty: 70 0RF ondansetron 4 mg tablet,disintegrating 4 mg PO Q8H PRN (Reason: nausea and vomiting) Qty: 14 0RF ferrous sulfate 325 mg (65 mg iron) tablet 325 mg PO TID 90 Days Qty: 270 0RF acetaminophen 500 mg capsule 1,000 mg PO Q8H PRN (Reason: pain) Qty: 30 0RF ibuprofen 600 mg tablet 600 mg PO Q6H PRN (Reason: pain) Qty: 20 0RF cyclobenzaprine 5 mg tablet 5 mg PO TID PRN (Reason: muscle spasm) Qty: 14 0RF Rx Instructions: This medication causes drowsiness, use with caution no driving for 8 hours after taking oxycodone 5 mg tablet 5 mg PO Q6H PRN (Reason: pain) Qty: 14 0RF Rx Instructions: Partial Fill upon patient request. oxycodone 5 mg tablet 5 mg PO Q6H PRN (Reason: pain) Qty: 14 0RF Rx Instructions: Partial Fill upon patient request. trazodone 150 mg tablet 150 mg PO BEDTIME sertraline 100 mg tablet 100 mg PO DAILY zolpidem 10 mg tablet 10 mg PO BEDTIME PRN hydrochlorothiazide 12.5 mg tablet 12.5 mg PO DAILY 30 Days Qty: 30 2RF sumatriptan succinate 50 mg tablet 50 mg PO BID PRN (Reason: Migraine Headache) alprazolam 0.5 mg tablet 0.5 mg PO BID PRN (Reason: Anxiety) topiramate 50 mg tablet 50 mg PO DAILY PRN clonazepam 1 mg tablet 1 mg PO BID hydroxyzine HCl 25 mg tablet 25 mg PO DAILY clotrimazole 1 % cream 1 appful vaginal BEDTIME Qty: 45 1RF tizanidine 4 mg tablet 4 mg PO BID PRN (Reason: muscle spasticity) 30 Days Qty: 60 6RF
== END 2022-12-02 16:35 | disposition home or self-care (01) ==
PROVIDERS: Emergency Provider Emergency Medicine; PCP Internal Medicine
DX: J45.909 Unspecified asthma, uncomplicated (principal); I10 Essential (primary) hypertension; F17.210 Nicotine dependence, cigarettes, uncomplicated; Z79.899 Other long term (current) drug therapy
CPT/HCPCS: 71046; 94640; 99283; 99284

== ENCOUNTER 2022-12-25 10:29 | Outpatient (REF) | payer OTHER, SELFPAY | END 2022-12-25 10:30 | disposition home or self-care (01) | LOC: HO.LNP 10:29 | PROVIDERS: PCP Internal Medicine; Visit Provider Advanced Practice Midwife | DX: Z20.2 Contact with and (suspected) exposure to infections with a predominantly sexual mode of transmission (principal) | CPT/HCPCS: 87480; 87510; 87660; 99212 ==

== ENCOUNTER 2022-12-25 11:43 | Outpatient (REF) | payer OTHER, SELFPAY | END 2022-12-25 11:44 | disposition home or self-care (01) | LOC: HO.LAB 11:43 | PROVIDERS: PCP Internal Medicine; Visit Provider Advanced Practice Midwife | DX: Z11.4 Encounter for screening for human immunodeficiency virus [HIV] (principal); Z20.2 Contact with and (suspected) exposure to infections with a predominantly sexual mode of transmission | CPT/HCPCS: 0353U; 86780; 86803; 87340; 87389 ==

== ENCOUNTER 2023-03-09 16:59 | Emergency (ER) | payer OTHER, SELFPAY ==
[2023-03-09 17:33] VITALS: BP 170/93; PULSE 61; RESP 19; TEMP 36.2; O2SAT 100; BMI 28.0
--- NOTE | 2023-03-09 17:34 | ED.GENADULT ---
HPI - General Adult General Chief complaint: Skin/Abscess/Foreign Body Stated complaint: Cyst Related Data Home Medications Medication Instructions Recorded Confirmed alprazolam 0.5 mg tablet 0.5 mg PO BID PRN Anxiety 03/27/20 12/25/22 sumatriptan succinate 50 mg tablet 50 mg PO BID PRN Migraine Headache 03/27/20 12/25/22 sertraline 100 mg tablet 100 mg PO DAILY 11/23/20 12/25/22 trazodone 150 mg tablet 150 mg PO BEDTIME 11/23/20 12/25/22 zolpidem 10 mg tablet 10 mg PO BEDTIME PRN 02/21/21 12/25/22 topiramate 50 mg tablet 50 mg PO DAILY PRN 09/30/21 12/25/22 clonazepam 1 mg tablet 1 mg PO BID 05/15/22 12/25/22 hydroxyzine HCl 25 mg tablet 25 mg PO DAILY 05/15/22 12/25/22 Previous Rx's Medication Instructions Recorded blood pressure test kit-medium #1 ea 08/12/20 ibuprofen 600 mg tablet 600 mg PO Q8H PRN for pain #90 tabs 09/21/20 omeprazole 20 mg capsule,delayed 20 mg PO DAILY #90 caps 09/21/21 release tizanidine 4 mg tablet 4 mg PO BID PRN muscle spasticity 11/30/21 30 days #60 tabs clotrimazole 1 % vaginal cream 1 appful vaginal BEDTIME #45 grams 05/15/22 albuterol sulfate 90 mcg/actuation 2 puff inhalation Q6H PRN 05/19/22 aerosol inhaler (ProAir HFA) shortness of breath or wheezing 30 days #8.5 grams acetaminophen 500 mg capsule 1,000 mg (2 x 500 mg) PO Q8H PRN 08/09/22 pain #30 caps cyclobenzaprine 5 mg tablet 5 mg PO TID PRN muscle spasm #14 08/09/22 tabs lactulose 10 gram/15 mL oral 15 ml PO DAILY #1,350 mL 09/29/22 solution metronidazole 0.75 % (37.5 mg/5 1 appful vaginal BEDTIME 5 days 10/12/22 gram) vaginal gel #70 grams ferrous sulfate 325 mg (65 mg 325 mg PO TID 90 days #270 tabs 11/20/22 iron) tablet albuterol sulfate 5 mg/mL(0.5 %) 5 mg inhalation Q6H PRN shortness 12/02/22 solution for nebulization of breath or wheezing #300 mL cetirizine 10 mg tablet 10 mg PO DAILY PRN allergy 12/02/22 symptoms #14 tabs docusate sodium 250 mg capsule 250 mg PO DAILY PRN constipation 12/04/22 30 days #90 caps hydrochlorothiazide 12.5 mg tablet 12.5 mg PO DAILY 30 days #90 tabs 12/04/22 doxycycline hyclate 100 mg tablet 100 mg PO BID #14 tabs 12/27/22 ondansetron 4 mg disintegrating 4 mg PO Q8H PRN nausea and 01/31/23 tablet vomiting #14 tabs albuterol sulfate 90 mcg/actuation 2 puff PO Q6H PRN for wheezing 30 02/18/23 aerosol inhaler (Ventolin HFA) days #18 grams cholecalciferol (vitamin D3) 50 50 mcg PO DAILY 90 days #90 caps 02/26/23 mcg (2,000 unit) capsule Allergies Allergy/AdvReac Type Severity Reaction Status Date / Time No Known Allergies Allergy Verified 12/25/22 10:31 [No Known Allergies*] [facility] Past Medical History Medical History Anxiety Anxiety and depression Asthma Cervical disc disorder at C6-C7 level with radiculopathy Cervicalgia Depression Essential hypertension Essential hypertension Hand pain HTN (hypertension) Insomnia Iron deficiency anemia Left shoulder pain Lumbar pain Migraines Moderate recurrent major depression Neck pain Right elbow pain Ulnar nerve compression Vertigo Surgical History History of ankle surgery (~01/2020) History of hernia surgery History of laparoscopic cholecystectomy History of tubal ligation History of umbilical hernia repair (~2018) Post-operative state S/P hardware removal Family History Family History Father Mental health disorder Hypertension Colon cancer Mother Hypertension Maternal Aunt Breast cancer Social History Social History Housing: Apartment Alcohol intake: current Alcohol intake frequency: holidays/special occasions only Alcohol type: wine Patient Tobacco Use Status: Current someday Tobacco user Tobacco use type: Cigarette Cigarettes Per Day: 1 e-Cigarette/Vaping Use: Never Used Second Hand Smoke Exposure: Yes service: No Current occupational status: disabled Gender identity: Female Cognitive needs: No Hearing needs: No Vision needs: No Physical Exam ED Vital Signs: BMI result Body Mass Index 28.0 Course Course Course Narrative: This is a rapid medical exam: Additional HPI, ROS, PE not included below will be deferred to primary provider. Patient is a 37-year-old female presenting to the emergency department with complaint of mass to right inguinal area, describes as a ball, states is mobile. Denies erythema. Noted 2 days ago. Denies fevers. Area not visualized in triage due to privacy concerns. BP elevated in triage, states she has had increased stress recently, her children's father on 02/16, difficulty sleeping, anxiety. Tried to see her PCP yesterday but PCP not in the office due to emergency. Discharge Plan Discharge Clinical Impression: Groin pain Qualifiers: Laterality: right Qualified Code(s): R10.31 - Right lower quadrant pain Patient Disposition: Left W/O Completing Treatment Prescriptions: No Action (DME) blood pressure test kit-medium Kit See Rx Instructions .ROUTE .MEDSUPPLY Qty: 1 0RF Rx Instructions: As directed ibuprofen 600 mg tablet 600 mg PO Q8H PRN (Reason: for pain) Qty: 90 1RF omeprazole 20 mg capsule,delayed release(DR/EC) 20 mg PO DAILY Qty: 90 0RF albuterol sulfate [ProAir HFA] 90 mcg/actuation HFA aerosol inhaler 2 puff inhalation Q6H PRN (Reason: shortness of breath or wheezing) 30 Days Qty: 8.5 6RF lactulose 10 gram/15 mL solution 15 ml PO DAILY Qty: 1350 1RF metronidazole 0.75 % (37.5mg/5 gram) gel 1 appful vaginal BEDTIME 5 Days Qty: 70 0RF ferrous sulfate 325 mg (65 mg iron) tablet 325 mg PO TID 90 Days Qty: 270 0RF docusate sodium 250 mg capsule 250 mg PO DAILY PRN (Reason: constipation) 30 Days Qty: 90 3RF hydrochlorothiazide 12.5 mg tablet 12.5 mg PO DAILY 30 Days Qty: 90 2RF doxycycline hyclate 100 mg tablet 100 mg PO BID Qty: 14 0RF ondansetron 4 mg tablet,disintegrating 4 mg PO Q8H PRN (Reason: nausea and vomiting) Qty: 14 0RF albuterol sulfate [Ventolin HFA] 90 mcg/actuation HFA aerosol inhaler 2 puff PO Q6H PRN (Reason: for wheezing) 30 Days Qty: 18 1RF cholecalciferol (vitamin D3) 50 mcg (2,000 unit) capsule 50 mcg PO DAILY 90 Days Qty: 90 1RF acetaminophen 500 mg capsule 1,000 mg PO Q8H PRN (Reason: pain) Qty: 30 0RF cyclobenzaprine 5 mg tablet 5 mg PO TID PRN (Reason: muscle spasm) Qty: 14 0RF Rx Instructions: This medication causes drowsiness, use with caution no driving for 8 hours after taking albuterol sulfate 5 mg/mL solution for nebulization 5 mg inhalation Q6H PRN (Reason: shortness of breath or wheezing) Qty: 300 0RF cetirizine 10 mg tablet 10 mg PO DAILY PRN (Reason: allergy symptoms) Qty: 14 0RF trazodone 150 mg tablet 150 mg PO BEDTIME sertraline 100 mg tablet 100 mg PO DAILY zolpidem 10 mg tablet 10 mg PO BEDTIME PRN sumatriptan succinate 50 mg tablet 50 mg PO BID PRN (Reason: Migraine Headache) alprazolam 0.5 mg tablet 0.5 mg PO BID PRN (Reason: Anxiety) topiramate 50 mg tablet 50 mg PO DAILY PRN clonazepam 1 mg tablet 1 mg PO BID hydroxyzine HCl 25 mg tablet 25 mg PO DAILY clotrimazole 1 % cream 1 appful vaginal BEDTIME Qty: 45 1RF tizanidine 4 mg tablet 4 mg PO BID PRN (Reason: muscle spasticity) 30 Days Qty: 60 6RF Discharge Date/Time: 03/09/23 21:54
== END 2023-03-09 21:54 | disposition left against medical advice (07) ==
PROVIDERS: Emergency Provider Emergency Medicine; PCP Internal Medicine
DX: R10.31 Right lower quadrant pain (principal)
CPT/HCPCS: 99281

== ENCOUNTER 2023-03-30 14:16 | Outpatient (AMB) | payer OTHER, SELFPAY ==
--- NOTE | 2023-03-30 14:21 | MHC.OFFVIS ---
Intake Vital Signs 03/30/23 14:23 Height 5 ft 6 in Weight 177 lb BMI 28.6 Intake Visit Reasons: CAMMIE Intake Note: felt a bump on right lower abdomen and when she pressed on it it hurt having white discharge and itchy and odor Silver Plater Required: No Information Interpreted: non-clinical & clinical Group Worker: Group Worker Present (Aidyn) Allergies No Known Allergies [No Known Allergies*] Allergy (Verified 03/30/23 14:24) Medication List - Last Reconciled 03/30/23 by Makenna Simons CNM acetaminophen 1,000 mg (2 x 500 mg) PO Q8H PRN albuterol sulfate 5 mg inhalation Q6H PRN albuterol sulfate 90 mcg/actuation (ProAir HFA) 2 puffs inhalation Q6H PRN 30 days albuterol sulfate 90 mcg/actuation (Ventolin HFA) 2 puffs PO Q6H PRN 30 days alprazolam 0.5 mg PO BID PRN blood pressure test kit-medium As directed cetirizine 10 mg PO DAILY PRN cholecalciferol (vitamin D3) 50 mcg PO DAILY 90 days clonazepam 1 mg PO BID cyclobenzaprine 5 mg PO TID PRN docusate sodium 250 mg PO DAILY PRN 30 days doxycycline hyclate 100 mg PO BID ferrous sulfate 325 mg PO TID 90 days hydrochlorothiazide 12.5 mg PO DAILY 30 days hydroxyzine HCl 25 mg PO DAILY ibuprofen 600 mg PO Q8H PRN lactulose 15 mL PO DAILY metronidazole 0.75%(37.5mg/5gram) 1 appful vaginal BEDTIME 5 days omeprazole 20 mg PO DAILY ondansetron 4 mg PO Q8H PRN sertraline 100 mg PO DAILY sumatriptan succinate 50 mg PO BID PRN tizanidine 4 mg PO BID PRN 30 days topiramate 50 mg PO DAILY PRN trazodone 150 mg PO BEDTIME zolpidem 10 mg PO BEDTIME PRN Is last menstrual period known: Yes Last menstrual period: 02/25/23 Post menopausal: No HPI CAMMIE HPI Details Patient is here for chlamydia test of cure also she felt she had of uncomfortable bump and her right groin/mons pubis area about a month ago that was painful but it went away. Also she notices that she thinks she has a smelly discharge back again she can not really tell if it is the same as when she had the chlamydia or not. She does not use condoms. Sometime she has some itching. She had her tubes tied. [facility] Medical History Ulnar nerve compression Cervical disc disorder at C6-C7 level with radiculopathy Cervicalgia Essential hypertension Iron deficiency anemia Moderate recurrent major depression Left shoulder pain Migraines Hand pain Right elbow pain Lumbar pain Neck pain Anxiety Essential hypertension Anxiety and depression Asthma Vertigo Insomnia Depression HTN (hypertension) Surgical History S/P hardware removal Post-operative state History of hernia surgery History of laparoscopic cholecystectomy History of umbilical hernia repair (~2018) History of ankle surgery (~01/2020) History of tubal ligation Family History Father Mental health disorder Hypertension Colon cancer Mother Hypertension Maternal Aunt Breast cancer Social History Housing: Apartment Alcohol intake: current Alcohol intake frequency: holidays/special occasions only Alcohol type: wine Patient Tobacco Use Status: Current someday Tobacco user Tobacco use type: Cigarette Cigarettes Per Day: 1 e-Cigarette/Vaping Use: Never Used Second Hand Smoke Exposure: Yes service: No Current occupational status: disabled Gender identity: Female Cognitive needs: No Hearing needs: No Vision needs: No Female Reproductive History Menstrual Age of Menarche: 12 Duration of menses: 3-5 days Date of last menstrual period: 02/25/23 control method: other (tubal ligation) Date of last pap smear: 10/11/22 (+HPV) History of abnormal pap smear: Yes Physical Exam Vital Signs: BMI result Body Mass Index 28.6 Other: External palpation of groin areas yields no swelling or mass or discomfort noted. Vagina pink moist with white discharge that is slightly bubbly. Cervix is multiparous pink normal appearing External Female Exam: normal external appearance Speculum Exam - Vagina: normal appearance of the vagina and normal vaginal discharge Speculum Exam - Cervix: normal appearance of the cervix Assessment & Plan Assessment & Plan (1) Chlamydia infection: Comment: See notes Rx with doxy Cyclen, also BV.//patient has malodorous troublesome discharge 03/30/2023 test of cure being done but will await full testing to see what there is to treat today. Code(s): A74.9 - Chlamydial infection, unspecified (2) Problematic vaginal discharge: Code(s): N89.8 - Other specified noninflammatory disorders of vagina Plan Patient is on the portal but we will call her if there are any positive results will await the results to see if there is any presence of chlamydia Gardnerella or trich that could be treated. Patient did not have any painful lump in her right groin labia area today so there was nothing to assess. No swelling noted. Coding Level of Care Code Est Pt Level 3 (99951) Diagnoses Chlamydia infection A74.9 Problematic vaginal discharge N89.8
[2023-03-30 14:23] VITALS: BMI 28.6
== END 2023-03-30 14:52 | disposition home or self-care (01) ==
PROVIDERS: PCP Internal Medicine; Visit Provider Advanced Practice Midwife
DX: A74.9 Chlamydial infection, unspecified (principal); N89.8 Other specified noninflammatory disorders of vagina
CPT/HCPCS: 99213

== ENCOUNTER 2023-03-30 14:16 | Outpatient (REF) | payer OTHER, SELFPAY | END 2023-03-30 14:17 | disposition home or self-care (01) | LOC: HO.LNP 14:16 | PROVIDERS: PCP Internal Medicine; Visit Provider Advanced Practice Midwife | DX: N89.8 Other specified noninflammatory disorders of vagina (principal); A74.9 Chlamydial infection, unspecified | CPT/HCPCS: 0353U; 87480; 87510; 87660; 99212 ==

== ENCOUNTER 2023-04-03 09:41 | Emergency (ER) | payer OTHER, SELFPAY ==
[2023-04-03 10:22] VITALS: BP 142/85; PULSE 70; RESP 17; TEMP 36.5; O2SAT 100; BMI 27.8
--- NOTE | 2023-04-03 10:44 | ED_ITS ---
HPI - General Adult General Chief complaint: Anxiety Stated complaint: chest pain/ SOB/ panic attack Time Seen by Provider: 04/03/23 10:36 Source: patient, RN notes reviewed and old records reviewed History of Present Illness HPI narrative: 37-year-old female with past medical history of recurrent major depression, anxiety, idiopathic constipation, HTN, presenting to the ED complaining of increasing anxiety with panic attack this morning at 09:00AM with associated chest pressure/palpitations and SOB. Admits symptoms are mildly improved at present. Previously prescribed Xanax 0.5 mg p.r.n. for anxiety, states has been out of her prescription x1 month, was unable to get in with her PCP. Denies fever/chills Onset (ago): hour(s) Related Data Home Medications Medication Instructions Recorded Confirmed alprazolam 0.5 mg tablet 0.5 mg PO BID PRN Anxiety 03/27/20 03/30/23 sumatriptan succinate 50 mg tablet 50 mg PO BID PRN Migraine Headache 03/27/20 03/30/23 sertraline 100 mg tablet 100 mg PO DAILY 11/23/20 03/30/23 trazodone 150 mg tablet 150 mg PO BEDTIME 11/23/20 03/30/23 zolpidem 10 mg tablet 10 mg PO BEDTIME PRN 02/21/21 03/30/23 topiramate 50 mg tablet 50 mg PO DAILY PRN 09/30/21 03/30/23 clonazepam 1 mg tablet 1 mg PO BID 05/15/22 03/30/23 hydroxyzine HCl 25 mg tablet 25 mg PO DAILY 05/15/22 03/30/23 Previous Rx's Medication Instructions Recorded blood pressure test kit-medium #1 ea 08/12/20 ibuprofen 600 mg tablet 600 mg PO Q8H PRN for pain #90 tabs 09/21/20 omeprazole 20 mg capsule,delayed 20 mg PO DAILY #90 caps 09/21/21 release tizanidine 4 mg tablet 4 mg PO BID PRN muscle spasticity 11/30/21 30 days #60 tabs albuterol sulfate 90 mcg/actuation 2 puff inhalation Q6H PRN 05/19/22 aerosol inhaler (ProAir HFA) shortness of breath or wheezing 30 days #8.5 grams acetaminophen 500 mg capsule 1,000 mg (2 x 500 mg) PO Q8H PRN 08/09/22 pain #30 caps cyclobenzaprine 5 mg tablet 5 mg PO TID PRN muscle spasm #14 08/09/22 tabs metronidazole 0.75 % (37.5 mg/5 1 appful vaginal BEDTIME 5 days 10/12/22 gram) vaginal gel #70 grams ferrous sulfate 325 mg (65 mg 325 mg PO TID 90 days #270 tabs 11/20/22 iron) tablet albuterol sulfate 5 mg/mL(0.5 %) 5 mg inhalation Q6H PRN shortness 12/02/22 solution for nebulization of breath or wheezing #300 mL cetirizine 10 mg tablet 10 mg PO DAILY PRN allergy 12/02/22 symptoms #14 tabs docusate sodium 250 mg capsule 250 mg PO DAILY PRN constipation 12/04/22 30 days #90 caps hydrochlorothiazide 12.5 mg tablet 12.5 mg PO DAILY 30 days #90 tabs 12/04/22 doxycycline hyclate 100 mg tablet 100 mg PO BID #14 tabs 12/27/22 ondansetron 4 mg disintegrating 4 mg PO Q8H PRN nausea and 01/31/23 tablet vomiting #14 tabs albuterol sulfate 90 mcg/actuation 2 puff PO Q6H PRN for wheezing 30 02/18/23 aerosol inhaler (Ventolin HFA) days #18 grams cholecalciferol (vitamin D3) 50 50 mcg PO DAILY 90 days #90 caps 02/26/23 mcg (2,000 unit) capsule lactulose 10 gram/15 mL oral 15 ml PO DAILY #1,350 mL 04/01/23 solution fluconazole 150 mg tablet 150 mg PO DAILY 1 dose #1 tab 04/03/23 metronidazole 0.75 % (37.5 mg/5 1 appful vaginal BEDTIME 5 days 04/03/23 gram) vaginal gel #70 grams Allergies Allergy/AdvReac Type Severity Reaction Status Date / Time No Known Allergies Allergy Verified 03/30/23 14:24 [No Known Allergies*] Review of Systems Review of Systems: Constitutional: No Fever, No Chills, No Fatigue, No Malaise Cardiovascular: + Chest Pain, +SOB, No Edema, + Palpitations Respiratory: No Cough, No Sputum, No Dyspnea Gastrointestinal: No Nausea, No Vomiting, No Abdominal pain Skin: No Skin Lesions, No rash Neuro: No Weakness, No Numbness, No Paresthesias, No Dizziness, No Headache Psych: + Anxiety/Panic, No Depression, No SI/HI/AH/VH, No Social Issues Yes all other systems are reviewed and are negative Constitutional: Constitutional: Reports as per [facility] Past Medical History Attestation statement: The following information was validated with the patient. Source: old records reviewed Medical History Ulnar nerve compression Cervical disc disorder at C6-C7 level with radiculopathy Cervicalgia Essential hypertension Iron deficiency anemia Moderate recurrent major depression Left shoulder pain Migraines Hand pain Right elbow pain Lumbar pain Neck pain Anxiety Essential hypertension Anxiety and depression Asthma Vertigo Insomnia Depression HTN (hypertension) Surgical History S/P hardware removal Post-operative state History of hernia surgery History of laparoscopic cholecystectomy History of umbilical hernia repair (~2018) History of ankle surgery (~01/2020) History of tubal ligation Family History Family History Father Mental health disorder Hypertension Colon cancer Mother Hypertension Maternal Aunt Breast cancer Social History Social History Housing: Apartment Alcohol intake: current Alcohol intake frequency: holidays/special occasions only Alcohol type: wine Patient Tobacco Use Status: Current someday Tobacco user Tobacco use type: Cigarette Cigarettes Per Day: 1 e-Cigarette/Vaping Use: Never Used Second Hand Smoke Exposure: Yes Advance Directives: No Advance Directives Information Provided: No service: No Current occupational status: disabled Gender identity: Female Cognitive needs: No Hearing needs: No Vision needs: No Physical Exam ED Vital Signs: Vital Signs - 24 hr 04/03/23 10:22 Temperature 97.7 F Pulse Rate 70 Respiratory Rate 17 Blood Pressure 142/85 H Pulse Oximetry 100 Oxygen Delivery Method Room Air BMI result Body Mass Index 27.8 Const General: cooperative, healthy appearing and no acute distress Orientation/consciousness: patient oriented x3 Limitations: no limitations HENMT Head: Yes normal to inspection and Yes atraumatic Ears: hearing grossly normal bilaterally General nose exam: Normal external nose present Face and sinus: Yes normal facial exam Eyes General: appearance normal, both eyes and all related structures EOM: EOMs intact bilaterally Neck Neck: Yes normal visual inspection and Yes no meningeal signs Resp Effort & Inspection: normal respiratory effort and no respiratory distress Auscultation: clear to auscultation bilaterally, no crackles, no rhonchi and no wheezes Cardio Rate: regular rate Heart sounds: S1 normal heart sound present and S2 normal heart sound present Peripheral pulses: Peripheral pulses 2+ throughout Skin Rashes: no rashes Wounds: no wounds Neuro General: patient oriented x3, tone normal and no meningeal signs Cranial nerves: Yes CN's II-XII intact bilaterally Gait exam (Neuro): Normal gait present Extrem General: Yes normal to inspection Course Course Course Narrative: -1134--patient reports anxiety resolved after Xanax given in the ED. Recommended close PCP follow-up Results discussed with patient including worrisome signs and symptoms and strict return precautions, and when to return to the emergency department. They verbalized understanding and feel safe for discharge at this time. Medications Administered Discontinued Medications Generic Name Dose Route Start Last Admin Trade Name Freq PRN Reason Stop Dose Admin Alprazolam 0.5 mg 04/03/23 10:50 04/03/23 11:03 Alprazolam 0.5 Mg Tablet PO 04/03/23 10:51 0.5 mg ONCE ONE Administration Medical Decision Making Medical Decision Making [facility] Narrative: 37-year-old female with past medical history of recurrent major depression, anxiety, idiopathic constipation, HTN, presenting to the ED complaining of increasing anxiety with panic attack this morning at 09:00AM with associated chest pressure/palpitations and SOB. On exam vital signs stable, NAD, nontoxic appearing, concern for anxiety/panic attack. Lower suspicion for ACS/PE or pneumonia/infectious etiology Plan: EKG, p.o. Xanax, re-evaluate Please refer to course for remaining clinical decision making, interpretation of labs/imaging results, and discussions with consultants and/or family members. Differential Diagnosis Differential Diagnoses: The differential diagnosis associated with the presentation includes As above Independent Interpretation I performed an independent interpretation of an: EKG (My interpretation EKG is normal sinus rhythm rate of 77. FL interval 150. QTC 414. No significant change when compared to prior) Radiology Impression Discussion of test interpretation with radiology: I have reviewed the radiologist's reading. External Record Review External record reviewed: Inpatient record, Office record, Outpatient record, Prior outpatient labs, Prior outpatient radiology, Primary care record and Outside ED record Tests considered The following testing was considered but not selected: As above Discharge Plan Discharge Clinical Impression: Acute anxiety Patient Disposition: Home, Self-Care Instructions: Anxiety (ED) Additional Instructions: Please have close follow-up with your doctor Your EKG was reassuring If you have thoughts of hurting yourself or others return to the ED Prescriptions: No Action (DME) blood pressure test kit-medium Kit See Rx Instructions .ROUTE .MEDSUPPLY Qty: 1 0RF Rx Instructions: As directed ibuprofen 600 mg tablet 600 mg PO Q8H PRN (Reason: for pain) Qty: 90 1RF omeprazole 20 mg capsule,delayed release(DR/EC) 20 mg PO DAILY Qty: 90 0RF albuterol sulfate [ProAir HFA] 90 mcg/actuation HFA aerosol inhaler 2 puff inhalation Q6H PRN (Reason: shortness of breath or wheezing) 30 Days Qty: 8.5 6RF metronidazole 0.75 % (37.5mg/5 gram) gel 1 appful vaginal BEDTIME 5 Days Qty: 70 0RF ferrous sulfate 325 mg (65 mg iron) tablet 325 mg PO TID 90 Days Qty: 270 0RF docusate sodium 250 mg capsule 250 mg PO DAILY PRN (Reason: constipation) 30 Days Qty: 90 3RF hydrochlorothiazide 12.5 mg tablet 12.5 mg PO DAILY 30 Days Qty: 90 2RF doxycycline hyclate 100 mg tablet 100 mg PO BID Qty: 14 0RF ondansetron 4 mg tablet,disintegrating 4 mg PO Q8H PRN (Reason: nausea and vomiting) Qty: 14 0RF albuterol sulfate [Ventolin HFA] 90 mcg/actuation HFA aerosol inhaler 2 puff PO Q6H PRN (Reason: for wheezing) 30 Days Qty: 18 1RF cholecalciferol (vitamin D3) 50 mcg (2,000 unit) capsule 50 mcg PO DAILY 90 Days Qty: 90 1RF lactulose 10 gram/15 mL solution 15 ml PO DAILY Qty: 1350 1RF metronidazole 0.75 % (37.5mg/5 gram) gel 1 appful vaginal BEDTIME 5 Days Qty: 70 0RF fluconazole 150 mg tablet 150 mg PO DAILY Qty: 1 0RF Rx Instructions: administer on day 1 of therapy acetaminophen 500 mg capsule 1,000 mg PO Q8H PRN (Reason: pain) Qty: 30 0RF cyclobenzaprine 5 mg tablet 5 mg PO TID PRN (Reason: muscle spasm) Qty: 14 0RF Rx Instructions: This medication causes drowsiness, use with caution no driving for 8 hours after taking albuterol sulfate 5 mg/mL solution for nebulization 5 mg inhalation Q6H PRN (Reason: shortness of breath or wheezing) Qty: 300 0RF cetirizine 10 mg tablet 10 mg PO DAILY PRN (Reason: allergy symptoms) Qty: 14 0RF trazodone 150 mg tablet 150 mg PO BEDTIME sertraline 100 mg tablet 100 mg PO DAILY zolpidem 10 mg tablet 10 mg PO BEDTIME PRN sumatriptan succinate 50 mg tablet 50 mg PO BID PRN (Reason: Migraine Headache) alprazolam 0.5 mg tablet 0.5 mg PO BID PRN (Reason: Anxiety) topiramate 50 mg tablet 50 mg PO DAILY PRN clonazepam 1 mg tablet 1 mg PO BID hydroxyzine HCl 25 mg tablet 25 mg PO DAILY tizanidine 4 mg tablet 4 mg PO BID PRN (Reason: muscle spasticity) 30 Days Qty: 60 6RF Referrals: [facility] [Provider Group] Maryse Meyers MD [Primary Care Provider] - 3 days Stand Alone Forms: Work/School Release Interventions: ED Discharge Assessment Last Done: 04/03/23 11:48 Discharge Date/Time: 04/03/23 11:49
--- NOTE | 2023-04-03 11:05 | PC.NURSE ---
pt reporting increased anxiety since 0900, medicated per AUG.
--- NOTE | 2023-04-03 11:47 | PC.NURSE ---
pt reporting symptom improvement after medication, advised to follow up w PCP/[facility] regarding worsening anxiety, pt denies SI/HI on discharge.
== END 2023-04-03 11:49 | disposition home or self-care (01) ==
PROVIDERS: Emergency Provider Student in an Organized Health Care Education/Training Program; PCP Internal Medicine
DX: F41.1 Generalized anxiety disorder (principal); F43.0 Acute stress reaction; R07.89 Other chest pain; R06.02 Shortness of breath; F41.0 Panic disorder [episodic paroxysmal anxiety]; F33.1 Major depressive disorder, recurrent, moderate; I10 Essential (primary) hypertension; F17.200 Nicotine dependence, unspecified, uncomplicated; Z71.6 Tobacco abuse counseling; Z79.899 Other long term (current) drug therapy
CPT/HCPCS: 93005; 99283

== ENCOUNTER 2023-06-05 13:04 | Outpatient (AMB) | payer OTHER, SELFPAY ==
[2023-06-05 13:07] VITALS: BP 120/90; PULSE 56; O2SAT 99; BMI 27.6
--- NOTE | 2023-06-05 13:07 | A.OFFPC_ITS ---
Vital Signs 06/05/23 13:07 Height 5 ft 6 in Weight 171 lb 2 oz BMI 27.6 BP 120/90 H Blood Pressure Location Lt brachial Position Sitting Pulse 56 Pulse Source Pulse Oximeter Pulse Oximetry (%) 99 Oxygen Delivery Method Room Air Intake Visit Reasons: follow up Intake Note: Pt is here medication review. Safety Engineer Required: No Accompanied by: Self / Same As Patient Allergies No Known Allergies [No Known Allergies*] Allergy (Verified 06/05/23 13:12) Tobacco use date assessed: 07/11/22 Dental Screening Dental Screen Date: 06/05/23 Did you have a dental visit in the last 12 months?: Yes Did you have a dental problem in the last 6 months where you did not have access to dental care?: No Was dental information given to patient?: Patient has dentist HPI HPI Comments History of Present Illness Details This is a 37-year-old female with moderate recurrent major depression, anxiety, chronic idiopathic constipation. Patient of Dr Castro presents today for same day visit for increase anxiety. Patient reports previously followed by a psychiatrist however she states he is no longer seeing her previous patient of Mahamed Dutton. Patient requesting prescription refills on trazodone, Xanax and zolpidem. Patient made aware that she eats to reestablish care with Psychiatry for prescription refill as these medications were never prescribed by her PCP. Patient currently on sertraline 50 mg daily sent by , patient made aware I can send a refill on this medication and will enter referral to Psychiatry. Patient agreeable to plan of care. Flu shot given in office today. COUNT INCLUDES THE [facility] Medical History Ulnar nerve compression Cervical disc disorder at C6-C7 level with radiculopathy Cervicalgia Essential hypertension Iron deficiency anemia Moderate recurrent major depression Left shoulder pain Migraines Hand pain Right elbow pain Lumbar pain Neck pain Anxiety Essential hypertension Anxiety and depression Asthma Vertigo Insomnia Depression HTN (hypertension) Surgical History S/P hardware removal Post-operative state History of hernia surgery History of laparoscopic cholecystectomy History of umbilical hernia repair (~2018) History of ankle surgery (~01/2020) History of tubal ligation Family History Father Mental health disorder Hypertension Colon cancer Mother Hypertension Maternal Aunt Breast cancer Social History Housing: Apartment Alcohol intake: current Alcohol intake frequency: holidays/special occasions only Alcohol type: wine Patient Tobacco Use Status: Current someday Tobacco user Tobacco use type: Cigarette Cigarettes Per Day: 1 e-Cigarette/Vaping Use: Never Used Second Hand Smoke Exposure: Yes service: No Current occupational status: disabled Gender identity: Female Cognitive needs: No Hearing needs: No Vision needs: No Female Reproductive History Menstrual Age of Menarche: 12 Questionnaire Thrive Questionnaire Date Thrive assessed: 07/11/22 HAROON-7 AMB Questionnaire HAROON-7 Date HAROON - 7 assessed: 07/11/22 Source: Developed by Drs. Saravanan Bowie, Amaris Caro, Jose Carlos Pennington and colleagues, with an educational wagner from [employer]. Review of Systems Const Denies chills, Denies fatigue, Denies fever(s) and Denies poor appetite Eyes Denies no additional complaints ENT Reports Normal hearing present Card Denies chest pain, Denies syncope, Denies rapid heart rate and Denies dyspnea Resp Denies cough and Denies dyspnea GI Denies change in stool character, Denies constipation, Denies diarrhea, Denies nausea and Denies vomiting Denies urinary frequency, Denies dysuria and Denies urinary urgency Neuro Reports Normal hearing present, Denies confusion and Denies syncope Psych Denies confusion Endo Denies fatigue Physical exam (Primary Care) Vital Signs: Last Vital Signs Pulse 56 06/05/23 13:07 BP 120/90 H 06/05/23 13:07 Pulse Ox 99 06/05/23 13:07 Oxygen Delivery Method Room Air 06/05/23 13:07 BMI result Body Mass Index 27.6 Tobacco/Smoking Status: Tobacco use Status Tobacco use date assessed 07/11/22 06/05/23 13:09 Patient Tobacco Use Status Current someday Tobacco 06/05/23 13:09 Tobacco use type Cigarette 06/05/23 13:09 e-Cigarette/Vaping Use Never Used 06/05/23 13:09 Thrive Assessment: Date of Thrive Assessment Date Thrive assessed 07/11/22 06/05/23 13:09 Const General: No confusion Orientation/consciousness: No confusion HENMT Head: Yes normocephalic and Yes atraumatic Eyes Conjunctivae: conjunctivae normal Chest Chest palpation & inspection: normal inspection of the chest Resp Effort & Inspection: normal respiratory effort Auscultation: clear to auscultation bilaterally, no crackles, no rhonchi and no wheezes Cardio Rate: regular rate Rhythm: regular rhythm Heart sounds: S1 normal heart sound present and S2 normal heart sound present GI Inspection: Yes normal to inspection Neuro General: No confusion Cranial nerves: Yes Normal hearing present Extrem General: No edema Office Procedures Flu Questionnaire Does the patient have a severe egg allergy?: No Does the patient have severe life threatening allergies?: No Does the patient have a fever or illness today?: No Has the patient ever had Guillain-[place] Syndrome?: No Has the patient ever had any past reaction to a flu shot?: No Immunizations flu vacc [id number] 6mos up(PF) 60 mcg(15 mcgx4)/0.5 mL IM syringe Performing Provider: TELLO Dunn Performing Location: [facility] Administered by: CAROLYNN Nicole on 06/05/23 13:32 Dose Route Admin Location Dispensed Lot Number Expiration Date [employer] 0.5 mL IM Left Deltoid 0.5 mL [id number] 12/23/23 26907-650-14 [employer] VIS Given Date VIS Provided VIS Publication Date 06/05/23 Single Vaccine 21 Eligibility Eligibility Date Funding Source Not [facility] Eligible 06/05/23 Private Assessment and Plan Assessment & Plan (1) HAROON (generalized anxiety disorder): Code(s): F41.1 - Generalized anxiety disorder Plan: Refill sent on sertraline. Referral entered to reestablish care for psychiatry for other prescription refills for benzodiazepines. (2) Anxiety and depression: Comment: This is follow by Psychiatry. I advised her to talk about refilling benzodiazepines with him. Code(s): F41.9 - Anxiety disorder, unspecified; F32.9 - Major depressive disorder, single episode, unspecified Plan: Refill sent on sertraline. Referral entered to reestablish care for psychiatry for other prescription refills for benzodiazepines. Plan Follow-up in 6 months. Orders: Orders Influenza [id number] Immunization Today Z23 - Encounter for immunization Referrals Psychiatry Referral F41.9 - Anxiety disorder, unspecified Medications: New flu vacc [id number] 6mos up(PF) 0.5 mL IM ONCE 0.5 mL 0RF Z23 - Encounter for immunization Refilled sertraline 50 mg PO DAILY 90 days 90 tabs 1RF Coding Level of Care Code Est Pt Level 3 (35921) Diagnoses HAROON (generalized anxiety disorder) F41.1 Anxiety and depression F41.9; F32.9
== END 2023-06-05 13:34 | disposition home or self-care (01) ==
PROVIDERS: PCP Internal Medicine; Visit Provider Nurse Practitioner Family
DX: Z23 Encounter for immunization (principal); F41.1 Generalized anxiety disorder; F33.9 Major depressive disorder, recurrent, unspecified; F17.210 Nicotine dependence, cigarettes, uncomplicated
CPT/HCPCS: 90471; 90686; 99213

== ENCOUNTER 2023-11-12 22:29 | Emergency (ER) | payer OTHER, SELFPAY ==
--- NOTE | ~2023-11-12 | CT_ITS ---
EXAMINATION: CT HEAD WITHOUT CONTRAST CT FACIAL BONES WITHOUT CONTRAST CT CERVICAL SPINE WITHOUT CONTRAST CLINICAL INFORMATION: Injury. Pain. COMPARISON: None available. TECHNIQUE: Contiguous axial imaging was performed through the head, facial bones and cervical spine without intravenous administration of contrast. Sagittal and coronal reformatted images also obtained. This CT examination was performed using dose optimization techniques as appropriate, variously including the following: *Automated exposure control *Adjustment of mA and/or kV according to patient size (this includes techniques or standardized protocols for targeted exams where dose is matched to indication/reason for exam; i.e. extremities or head) *Use of iterative reconstruction technique DLP: 1446 mGy-cm FINDINGS: The lateral, third and fourth ventricles are normally outlined. The cortical sulci and basal cisterns are normally outlined as well. There is no acute territorial defect, hemorrhage or midline shift. The extra-axial spaces are unremarkable. Calvarium/scalp: Intact. Facial bones: There is a mildly displaced fracture floor of the left orbit with 2.5 mm separation of fracture fragments. There is a comminuted displaced fracture lateral wall of the left maxillary sinus with multiple fracture fragments and significant displacement. There is also a comminuted displaced fracture in anterior inferior left maxillary sinus with 3 mm depression of the fracture fragments. There is an undisplaced fracture of the anterior zygoma. There is a comminuted displaced fracture lateral wall of the left orbit. There is a left maxillary sinus opacity with associated air lucencies. Ethmoid sinus and nasal cavity opacities are also seen on the left. There is also air lucencies along the lateral maxillary sinus. A right maxillary sinus opacity is noted. The remaining sinuses and the mastoids are clear. There is left periorbital and left cheek soft tissue swelling. Cervical spine: There is straightening of the expected cervical spine curvature. There is mild C6-C7 disc degenerative change with loss of disc space, endplate change and mild osteophyte formation associated with mild diffuse facet osteoarthritic hypertrophic change. There is no significant spinal canal or neuroforaminal narrowing. The bone mineralization is normal. No fracture is seen. The visualized upper lung waller are clear. CT/CT cervical spine wo IV con IMPRESSION: 1. No acute intracranial finding. 2. No acute cervical spine fracture or traumatic subluxation. 3. There is a left zygomaticomaxillary complex fracture. 4. There is mild C6-C7 disc degenerative change and mild diffuse facet arthropathy. No significant spinal canal or neuroforaminal narrowing is seen.
[2023-11-12 22:34] VITALS: BP 151/97; PULSE 84; RESP 17; TEMP 36.6; O2SAT 100; BMI 25.8
--- NOTE | 2023-11-12 22:40 | PC.NURSE ---
Charge nurse aware of patient.
[2023-11-13 00:20] VITALS: BP 154/89; PULSE 64; RESP 16; TEMP 37.2; O2SAT 98
[2023-11-13] MEDS: Amoxicillin/Potassium Clav 875 MG TABLET PO (02:16)
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
[2023-11-13] MEDS: Morphine Sulfate Immed Release 15 MG TABLET PO (02:17)
[2023-11-13 02:21] VITALS: BP 156/74; PULSE 68; RESP 16; TEMP 36.8; O2SAT 97
[2023-11-13 02:33] VITALS: BP 0/0; PULSE 0; RESP 0; TEMP -17.7; TEMP 0; O2SAT 0
== END 2023-11-13 02:34 | disposition home or self-care (01) ==
PROVIDERS: Emergency Provider Internal Medicine; PCP Internal Medicine
DX: S02.40FA Zygomatic fracture, left side, initial encounter for closed fracture (principal); S80.211A Abrasion, right knee, initial encounter; V86.56XA Driver of dirt bike or motor/cross bike injured in nontraffic accident, initial encounter; Y93.89 Activity, other specified; Y92.9 Unspecified place or not applicable; Y99.9 Unspecified external cause status; F17.210 Nicotine dependence, cigarettes, uncomplicated
CPT/HCPCS: 70450; 70486; 72125; 99283; 99284

== ENCOUNTER 2023-12-06 16:45 | Outpatient (AMB) | payer OTHER, SELFPAY ==
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
[2023-12-06 16:51] VITALS: BP 120/72; BMI 27.1
== END 2023-12-06 17:27 | disposition home or self-care (01) ==
PROVIDERS: PCP Internal Medicine; Visit Provider Internal Medicine
DX: S02.92XA Unspecified fracture of facial bones, initial encounter for closed fracture (principal); F32.0 Major depressive disorder, single episode, mild; D50.0 Iron deficiency anemia secondary to blood loss (chronic); F41.1 Generalized anxiety disorder
CPT/HCPCS: 99214; G2211

== ENCOUNTER 2023-12-12 09:00 | Outpatient (REF) | payer OTHER, SELFPAY ==
[2023-12-12 09:15] LABS: MANUAL DIFF FLAG NO
[2023-12-12 10:13] LABS: Basophils Percent Auto 0.5 % (0-2); Eosinophils Absolute Auto 0.2 X10*3/uL (0.0-0.4); Hematocrit 33.5 % (37.0-47.0); Hemoglobin 9.1 g/dl (12.0-16.0); Imm Gran Abs Auto 0.02 X10*3/uL (0.00-0.03); Imm Gran Pct Auto 0.3 % (0.0-0.4); Lymphocytes Absolute Auto 1.9 X10*3/uL (1.2-4.9); Mean Corpuscular HGB Conc 27.2 g/dl (31.0-35.0); Mean Corpuscular Hemoglobin 18.2 pg (27.0-33.0); Mean Corpuscular Volume 67.1 fL (80.0-98.0); Mean Platelet Volume 10.6 fL (9.4-12.3); Monocytes Absolute Auto 0.6 X10*3/uL (0.1-1.2); Monocytes Percent Auto 8.2 % (2-11); Neutrophils Absolute Auto 4.7 x10*3/uL (2.0-8.3); Platelet Count 364 X10*3/uL (160-400); Red Blood Count 4.99 X10*6/uL (4.20-5.50); Red Cell Distribution Width 18.5 % (11.0-16.0); White Blood Count 7.5 X10*3/uL (4.8-10.8)
[2023-12-12 11:07] LABS: Alanine Aminotransferase 15 U/L (0-31); Albumin Level 4.3 g/dL (3.5-5.0); Alkaline Phosphatase 69 U/L (39-117); Anion Gap 9 (12-20); Aspartate Amino Transferase 20 U/L (5-31); Bilirubin Total 0.2 mg/dL (0.0-1.0); Blood Urea Nitrogen 11 mg/dL (9-16); Calcium 9.3 mg/dL (8.4-10.2); Carbon Dioxide 29 mmol/L (22-29); Chloride 107 mmol/L (96-108); Estimated Glomerular Filt Rate > 60; Glucose Fasting 87 mg/dL (60-99); Potassium 4.1 mmol/L (3.3-5.1); Sodium 141 mmol/L (135-145); Total Protein 7.3 g/dL (6.5-8.0)
== END 2023-12-12 09:01 | disposition home or self-care (01) ==
LOC: HO.LAB 09:00
PROVIDERS: PCP Internal Medicine; Visit Provider Internal Medicine
DX: Z01.812 Encounter for preprocedural laboratory examination (principal)
CPT/HCPCS: 36415; 80053; 85025

== ENCOUNTER 2024-03-06 08:46 | Outpatient (AMB) | payer OTHER, SELFPAY ==
--- NOTE | 2024-03-06 08:53 | A.OFFPC_ITS ---
Vital Signs 03/06/24 08:54 Height 5 ft 6 in Weight 166 lb BMI 26.8 BP 130/86 Blood Pressure Location Lt brachial Position Sitting Intake Visit Reasons: RT breast pain Intake Note: Patient here for right breast pain and lump, anxiety with depression Radiator Specialist Required: No Accompanied by: Self / Same As Patient Allergies No Known Allergies [No Known Allergies*] Allergy (Verified 03/06/24 09:05) Medication List - Last Reconciled 03/06/24 by Maryse Gastelum MD albuterol sulfate 5 mg inhalation Q6H PRN albuterol sulfate 90 mcg/actuation (Ventolin HFA) 2 puffs PO Q6H PRN 30 days blood pressure test kit-medium As directed cyclobenzaprine 10 mg PO BEDTIME PRN 30 days diclofenac sodium 75 mg PO BID PRN 10 days ferrous sulfate 325 mg PO BID 90 days Tobacco use date assessed: 12/06/23 Dental Screening Dental Screen Date: 12/06/23 HPI HPI Comments History of Present Illness Details This is a 38-year-old female with moderate major depression, anxiety and asthma that complains of right breast pain at 12:00 o'clock that started few weeks ago. No nipple discharge or retraction. No mass palpated. Will have ultrasound and mammogram. Also has been having more depression and anxiety and has no counseling or psychiatrist due to no-shows. I will start her on medications. Refer her to Psychiatry outpatient. Asthma has been stable with rescue inhaler which she use once a month. [facility] Medical History (Updated 03/06/24 @ 10:14 by Maryse Gastelum MD) Moderate recurrent major depression Ulnar nerve compression Cervical disc disorder at C6-C7 level with radiculopathy Cervicalgia Essential hypertension Iron deficiency anemia Left shoulder pain Migraines Hand pain Right elbow pain Lumbar pain Neck pain Anxiety Essential hypertension Anxiety and depression Asthma Vertigo Insomnia Depression HTN (hypertension) Surgical History S/P hardware removal Post-operative state History of hernia surgery History of laparoscopic cholecystectomy History of umbilical hernia repair (~2018) History of ankle surgery (~01/2020) History of tubal ligation Family History Father Mental health disorder Hypertension Colon cancer Mother Hypertension Maternal Aunt Breast cancer Social History Housing: Apartment Alcohol intake: former Patient Tobacco Use Status: Former Tobacco user Tobacco use type: Cigarette Cigarettes Per Day: 1 e-Cigarette/Vaping Use: Never Used Second Hand Smoke Exposure: Yes service: No Current occupational status: disabled Gender identity: Female Cognitive needs: No Hearing needs: No Vision needs: No Female Reproductive History Menstrual Age of Menarche: 12 Questionnaire PHQ-9 Over the last 2 weeks, how often have you been bothered by any of the following problems? 1. Little interest or pleasure in doing things: several days 2. Feeling down, depressed, or hopeless: several days 3. Trouble falling or staying asleep, or sleeping too much: nearly every day 4. Feeling tired or having little energy: not at all 5. Poor appetite or overeating: nearly every day 6. Feeling bad about yourself - or that you are a failure or have let yourself or your family down: nearly every day 7. Trouble concentrating on things, such as reading the newspaper or watching television: more than half the days 8. Moving or speaking so slowly that other people could have noticed. Or the opposite - being so fidgety or restless that you have been moving around a lot more than usual: nearly every day 9. Thoughts that you would be better off or of hurting yourself in some way: not at all Total score: 16 Depression Screening Interpretation: Positive Depression Screening Follow-up: Existing condition, New Medication prescribed, Community Mental Health Worker F/U and Follow-up Visit Requested Depression Screening Done: Yes 38702 - PHQ-9 Billing: Yes Source: Developed by Drs. Saravanan Bowie, Amaris Caro, Jose Carlos Pennington and colleagues, with an educational wagner from [employer]. Thrive Questionnaire Date Thrive assessed: 12/06/23 HAROON-7 AMB Questionnaire HAROON-7 Date HAROON - 7 assessed: 03/06/24 Feeling nervous, anxious, or on edge: 3 = Nearly every day Not being able to stop or control worryin = Several days Worrying too much about different things: 1 = Several days Trouble relaxin = More than half the days Being so restless that it is hard to sit still: 2 = More than half the days Becoming easily annoyed or irritable: 3 = Nearly every day Feeling afraid as if something awful might happen: 3 = Nearly every day Total HAROON-7 score (0-4 normal; 5-9 mild; 10-14 moderate; 15-21 severe): 15 Source: Developed by Drs. Saravanan Bowie, Amaris Caro, Jose Carlos Pennington and colleagues, with an educational wagner from [employer]. HAROON-7 Assessment Billing HAROON-7 Assessment Tool: HAROON-7 Assessment 20400 Review of Systems Const All systems reviewed & are unremarkable except as noted in HPI and below Card Denies chest pain at rest, Denies chest pain with activity, Denies edema, Denies irregular heart rhythm, Denies claudication, Denies dyspnea, Denies dyspnea on exertion, Denies orthopnea, Denies paroxysmal nocturnal dyspnea and Denies slow heart rate Resp Denies cough, Denies dyspnea and Denies dyspnea on exertion GI Denies abdominal pain, Denies change in bowel habits, Denies excessive flatus, Denies nausea and Denies vomiting Denies urinary incontinence, Denies urinary hesitancy and Denies urinary urgency Musc Denies atrophy, Denies deformity and Denies limited range of motion Skin/Breast Denies bleeding lesions, Reports breast pain, Denies changing lesions and Denies rash Psych Reports abnormal sleep pattern, Reports anxiety and Reports depression Physical exam (Primary Care) Vital Signs: Last Vital Signs BP 130/86 03/06/24 08:54 BMI result Body Mass Index 26.8 Tobacco/Smoking Status: Tobacco use Status Tobacco use date assessed 12/06/23 03/06/24 09:01 Patient Tobacco Use Status Former Tobacco user 03/06/24 09:01 Tobacco use type Cigarette 03/06/24 09:01 e-Cigarette/Vaping Use Never Used 03/06/24 09:01 PHQ-9: PHQ-9 Score PHQ-9: Total score 16 03/06/24 09:08 Depression Screening Interpretation: Positive Depression Screening Follow-up: Existing condition, New Medication prescribed, Community Mental Health Worker F/U and Follow-up Visit Requested Thrive Assessment: Date of Thrive Assessment Date Thrive assessed 12/06/23 03/06/24 09:01 Chest Breast/axilla inspection: normal inspection of the breasts and normal inspection of the axillae Breast/axilla palpation: normal palpation of the axillae and abnormal palpation of the breast (right breast pain at 12 o'clock) Resp Effort & Inspection: normal respiratory effort Auscultation: clear to auscultation bilaterally Cardio Jugular venous distension: no JVD Rate: regular rate Rhythm: regular rhythm Heart sounds: S1 normal heart sound present and S2 normal heart sound present Extrem General: Yes full ROM Assessment and Plan Assessment & Plan (1) Breast pain, right: Code(s): N64.4 - Mastodynia Plan: Mammogram and ultrasound of the breast ordered. (2) Moderate recurrent major depression: Code(s): F33.1 - Major depressive disorder, recurrent, moderate Plan: Start paroxetine at a.m. and Seroquel at bedtime. (3) HAROON (generalized anxiety disorder): Code(s): F41.1 - Generalized anxiety disorder Plan: Start buspirone. (4) Asthma: Code(s): J45.909 - Unspecified asthma, uncomplicated Plan: Use rescue inhaler as needed. Orders: Orders MM diagnostic mammo BI Today N64.4 - Mastodynia US breast RT complete Today N64.4 - Mastodynia Referrals Psychiatry Outpatient Consultation Service F33.1 - Major depressive disorder, recurrent, moderate, F41.1 - Generalized anxiety disorder Medications: New paroxetine HCl 20 mg PO DAILY 90 tabs 0RF 90 days F33.1 - Major depressive disorder, recurrent, moderate quetiapine 50 mg PO BEDTIME 90 tabs 1RF 90 days buspirone 10 mg PO TID 90 tabs 0RF 30 days F41.1 - Generalized anxiety disorder Coding Level of Care Code Est Pt Level 4 (66661) Complex EM visit Add On G2211 Diagnoses Breast pain, right N64.4 Moderate recurrent major depression F33.1 HAROON (generalized anxiety disorder) F41.1 Asthma J45.909 Additional Codes HAROON-7 Assessment Billing - HAROON-7 Assessment Tool: HAROON-7 Assessment 11120 ([id number]) Time Spent (min) 22
[2024-03-06 08:54] VITALS: BP 130/86; BMI 26.8
== END 2024-03-06 09:17 | disposition home or self-care (01) ==
PROVIDERS: PCP Internal Medicine; Visit Provider Internal Medicine
DX: N64.4 Mastodynia (principal); F33.1 Major depressive disorder, recurrent, moderate; F41.1 Generalized anxiety disorder; J45.909 Unspecified asthma, uncomplicated
CPT/HCPCS: 96127; 99214; G2211

== ENCOUNTER 2024-04-09 14:52 | Outpatient (REF) | payer OTHER, SELFPAY ==
--- NOTE | ~2024-04-09 | MM_ITS ---
EXAMINATION: MM DIAGNOSTIC DIGITAL BREAST TOMOSYNTHESIS, BILATERAL US BREAST LIMITED, RIGHT MAMMOGRAPHY: CLINICAL INFORMATION: [age]-year-old female complaining of superior right breast pain approximate 10:00 to 2:00 axis x2 months, getting worse. No prior surgeries. History of breast cancer in one maternal aunt. COMPARISON: Mammography: None. Baseline exam. TECHNIQUE: Digital breast tomosynthesis is performed in both the craniocaudal and mediolateral oblique views along with computer-aided detection (CAD). Synthesized 2D images are generated from the tomosynthesis. FINDINGS: The breasts are heterogeneously dense, which may obscure small masses (ACR BI-RADS breast composition Category c). Breast tissue is bordering on extremely dense. A marker has been placed in the 12:00 axis of the right breast, mid to posterior one third, indicating area of pain. No underlying mammographic abnormality is identified. There are bilateral nipple bars present. There are no suspicious masses, suspicious grouped calcifications, or areas of architectural distortion in either breast. The parenchymal pattern is stable from prior exams. There is no skin or axillary abnormality. ULTRASOUND: CLINICAL INFORMATION: As above. COMPARISON: None TECHNIQUE: Targeted sonographic evaluation was performed using a high frequency linear transducer. Attention was given to the 10-2 o'clock axis of the right breast in the region of breast pain. Selected archived documentation. FINDINGS: RIGHT BREAST: There is heterogeneously dense breast tissue present. No suspicious mass is seen. There is no pathologic acoustic shadowing. There is no cystic abnormality. There is no sonographic correlate to the region of breast pain. MM/MM tomosynthesis diagnostic BI IMPRESSION: -There are no findings suspicious for malignancy in either breast. -There is no sonographic or mammographic correlate to the region of superior right breast pain. Recommend clinical management and follow-up. -Otherwise, recommend the patient begin annual screening mammography at age 40. OVERALL ASSESSMENT: Mammography: BI-RADS 2 - Benign Findings Ultrasound: BI-RADS 2 - Benign Findings RECOMMENDATION: Mammo at 40 or earlier if clinically needed Electronically signed by: Alejandro Solis MD 04/09/2024 04:52 PM EDT
== END 2024-04-09 14:53 | disposition home or self-care (01) ==
LOC: HO.MAMMO 14:52
PROVIDERS: PCP Internal Medicine; Visit Provider Internal Medicine
DX: N64.4 Mastodynia (principal)
CPT/HCPCS: 76642; 77062; 77066

== ENCOUNTER → 2024-04-09 15:30 | Outpatient (BNV) | payer OTHER, SELFPAY | PROVIDERS: PCP Internal Medicine; Visit Provider Radiology Diagnostic Radiology | DX: R92.331 Mammographic heterogeneous density, right breast (principal); N64.4 Mastodynia | CPT/HCPCS: 76642; 77062; 77066 ==

== ENCOUNTER 2024-04-25 12:12 | Emergency (ER) | payer OTHER, SELFPAY ==
[2024-04-25 12:16] VITALS: BP 142/78; PULSE 71; RESP 16; TEMP 36.4; O2SAT 99; BMI 30.7
--- NOTE | 2024-04-25 12:16 | ED_ITS ---
HPI - Headache General Chief Complaint: Headache Stated Complaint: vomiting Time Seen by Provider: 04/25/24 15:59 Source: patient and old records reviewed Mode of arrival: ambulatory Limitations: no limitations History of Present Illness ED Provider: YESY PORTER Narrative: 38 yo female with PMH of migraines, anemia, back pain, anxiety and depression, asthma here with c/o migraine, dizziness, n/v. She notes it started at work nothing exertional no fevers, head trauma, has had similar episodes in past with headache and dizziness though the vomiting is worse. She tried sumatriptan and zofran but no relief. She notes resting has helped. She is not on thinners. MD elicited complaint: migraine Pertinent past history: migraines Onset (ago): day(s) (2) Onset description: gradually Location: frontal, temporal and band-like Severity: moderate Quality & Timing: throbbing, dull and constant Exacerbating factors: movement of head/neck, sitting/standing, light and noise Relieving factors: rest and dark room Context: occurred at rest Associated symptoms: nausea, vomiting and photophobia Treatments prior to arrival: migraine medication Related Data Previous Rx's ?Medication ?Instructions ?Recorded blood pressure test kit-medium #1 ea 08/12/20 albuterol sulfate 90 mcg/actuation 2 puff PO Q6H PRN for wheezing 30 04/03/24 aerosol inhaler (Ventolin HFA) days #18 grams buspirone 10 mg tablet 10 mg PO TID 30 days #90 tabs 04/03/24 cyclobenzaprine 10 mg tablet 10 mg PO BEDTIME PRN muscle spasm 04/03/24 30 days #30 tabs diclofenac sodium 75 mg 75 mg PO BID PRN pain 10 days #20 04/03/24 tablet,delayed release tabs ferrous sulfate 325 mg (65 mg 325 mg PO BID 90 days #180 tabs 04/03/24 iron) tablet ondansetron 4 mg disintegrating 4 mg PO Q8H PRN nausea and 04/03/24 tablet vomiting 30 days #90 tabs paroxetine HCl 20 mg tablet 20 mg PO DAILY 90 days #90 tabs 04/03/24 quetiapine 50 mg tablet 50 mg PO BEDTIME 90 days #90 tabs 04/03/24 albuterol sulfate 2.5 mg/3 mL 2.5 mg (3 mL) inhalation Q6H PRN 04/04/24 (0.083 %) solution for nebulization bronchospasm 30 days #360 mL Allergies Allergy/AdvReac Type Severity Reaction Status Date / Time No Known Allergies Allergy Verified 04/25/24 12:18 [No Known Allergies*] Review of Systems 2 Review of Systems: Constitutional : No Fever, No Chills, No Fatigue ENT/Mouth : No sore throat, No Rhinorrhea Eyes: No Eye Pain, No Swelling, No Redness Cardiovascular : No Chest Pain, No SOB, No Dyspnea on Exertion Respiratory : No Cough, No Sputum Gastrointestinal : pos Nausea, pos Vomiting, No Diarrhea, No abdominal Pain Genitourinary : No Dysuria, No Urinary Frequency, No Hematuria, Musculoskeletal : No joint pain, No Myalgias, No Joint Swelling Skin : No Skin Lesions, No rash Neuro : No Weakness, No Numbness, pos Dizziness, positive Headache Psych : No Anxiety/Panic, No Depression All other systems reviewed and are negative PMFSH Past Medical History Attestation statement: The following information was validated with the patient. Source: old records reviewed Medical History Moderate recurrent major depression Ulnar nerve compression Cervical disc disorder at C6-C7 level with radiculopathy Cervicalgia Essential hypertension Iron deficiency anemia Left shoulder pain Migraines Hand pain Right elbow pain Lumbar pain Neck pain Anxiety Essential hypertension Anxiety and depression Asthma Vertigo Insomnia Depression HTN (hypertension) Surgical History S/P hardware removal Post-operative state History of hernia surgery History of laparoscopic cholecystectomy History of umbilical hernia repair (~2018) History of ankle surgery (~01/2020) History of tubal ligation Family History Family History Father Mental health disorder Hypertension Colon cancer Mother Hypertension Maternal Aunt Breast cancer Social History Social History Housing: Apartment Alcohol intake: former Patient Tobacco Use Status: Former Tobacco user Tobacco use type: Cigarette Cigarettes Per Day: 1 e-Cigarette/Vaping Use: Never Used Second Hand Smoke Exposure: Yes Advance Directives: No Advance Directives Information Provided: Yes service: No Current occupational status: disabled Gender identity: Female Cognitive needs: No Hearing needs: No Vision needs: No Physical Exam 2 Vital Signs: Vital Signs: Last Vital Signs Temp 97.6 F 04/25/24 12:16 Pulse 71 04/25/24 12:16 Resp 16 04/25/24 12:16 BP 142/78 H 04/25/24 12:16 Pulse Ox 99 04/25/24 12:16 O2 Del Method Room Air 04/25/24 12:16 BMI result Body Mass Index 30.7 Appearance: Alert. Oriented X3. No acute distress. Eyes: Pupils equal, round and reactive to light. ENT: Pharynx normal. Neck: Normal inspection. Neck supple. no meningeal signs CVS: Normal heart rate and rhythm. Pulses normal. Respiratory: No respiratory distress. Breath sounds normal. Abdomen: Soft and nontender. Skin: Skin warm and dry. Normal skin color. Normal skin turgor. Extremities: No lower extremity edema. Neuro: Oriented X 3. No motor deficit. No sensory deficit. Course Course Course Narrative: This is a Rapid Medical Examination (RME) performed by Kim Crater PA-C in triage. Full HPI, ROS, assessment and treatment plan per primary provider in the Main ED. 38 yo hx of migraines here w/ headache x2 days. assoc. dizziness, nausea, and vomiting x1 this morning (after eating). feels like typical migraine (minus vomiting) however it is not responding to OTC meds (tylenol) or sumatriptan. 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 Not dehydrated appearing Differential Diagnosis Differential Diagnoses: The differential diagnosis associated with the presentation includes tension headache, migraine Admission/Observation Consideration of admission/observation: Escalation of care including admission/observation considered feels much better stable for DC Lab Data [facility] Lab Attestation statement: I reviewed the patient's lab results. 04/25/24 12:23 04/25/24 12:23 Labs: Lab Results 04/25/24 Range/Units 12:23 WBC 8.4 (4.8-10.8) X10*3/uL RBC 4.73 (4.20-5.50) X10*6/uL Hgb 11.2 L D (12.0-16.0) g/dl Hct 36.8 L (37.0-47.0) % MCV 77.8 L (80.0-98.0) fL MCH 23.7 L (27.0-33.0) pg MCHC 30.4 L (31.0-35.0) g/dl RDW 17.3 H (11.0-16.0) % Plt Count 292 (160-400) X10*3/uL MPV 10.6 (9.4-12.3) fL Immature Gran % (Auto) 0.6 H (0.0-0.4) % Neut % (Auto) 75.1 H (45-73) % Lymph % (Auto) 16.0 L (20-40) % Crawford % (Auto) 6.7 (2-11) % Eos % (Auto) 1.2 (0-4) % Baso % (Auto) 0.4 (0-2) % Lymph # (Auto) 1.3 (1.2-4.9) X10*3/uL Crawford # (Auto) 0.6 (0.1-1.2) X10*3/uL Eos # (Auto) 0.1 (0.0-0.4) X10*3/uL Baso # (Auto) 0.0 (0.0-0.2) X10*3/uL Abs Immat Gran (auto) 0.05 H (0.00-0.03) X10*3/uL Absolute Neuts (auto) 6.3 (2.0-8.3) x10*3/uL Absolute Nucleated RBC 0.000 (0.0-0.012) X10*3/uL Nucleated RBC % (auto) 0.0 (0.0-0.2) /100WBC Sodium 140 (135-145) mmol/L Potassium 3.7 (3.3-5.1) mmol/L Chloride 107 (96-108) mmol/L Carbon Dioxide 26 (22-29) mmol/L Anion Gap 11 L (12-20) BUN 9 (9-16) mg/dL Creatinine 0.72 (0.5-1.4) mg/dL Estim Creat Clear Calc 118.4 Estimated GFR > 60 Random Glucose 106 (60-115) mg/dL Calcium 9.1 (8.4-10.2) mg/dL Total Bilirubin 0.2 (0.0-1.0) mg/dL AST 25 (5-31) U/L ALT 17 (0-31) U/L Alkaline Phosphatase 64 (39-117) U/L Total Protein 7.2 (6.5-8.0) g/dL Albumin 4.2 (3.5-5.0) g/dL Beta HCG, Quant < 2 mIU/mL External Record Review External record reviewed: Office record Prescription Management I considered prescription management with: Other Discharge Plan Discharge Clinical Impression: Migraine Instructions: Migraine Headache (ED) Prescriptions: No Action (DME) blood pressure test kit-medium Kit See Rx Instructions .ROUTE .MEDSUPPLY Qty: 1 0RF Rx Instructions: As directed buspirone 10 mg tablet 10 mg PO TID 30 Days Qty: 90 0RF cyclobenzaprine 10 mg tablet 10 mg PO BEDTIME PRN (Reason: muscle spasm) 30 Days Qty: 30 0RF diclofenac sodium 75 mg tablet,delayed release (DR/EC) 75 mg PO BID PRN (Reason: pain) 10 Days Qty: 20 0RF ferrous sulfate 325 mg (65 mg iron) tablet 325 mg PO BID 90 Days Qty: 180 3RF paroxetine HCl 20 mg tablet 20 mg PO DAILY 90 Days Qty: 90 0RF ondansetron 4 mg tablet,disintegrating 4 mg PO Q8H PRN (Reason: nausea and vomiting) 30 Days Qty: 90 0RF quetiapine 50 mg tablet 50 mg PO BEDTIME 90 Days Qty: 90 1RF albuterol sulfate [Ventolin HFA] 90 mcg/actuation HFA aerosol inhaler 2 puff PO Q6H PRN (Reason: for wheezing) 30 Days Qty: 18 1RF albuterol sulfate 2.5 mg /3 mL (0.083 %) solution for nebulization 2.5 mg inhalation Q6H PRN (Reason: bronchospasm) 30 Days Qty: 360 1RF Print Language: Greek
[2024-04-25 12:27] LABS: Basophils Percent Auto 0.4 % (0-2); Eosinophils Absolute Auto 0.1 X10*3/uL (0.0-0.4); Eosinophils Percent Auto 1.2 % (0-4); Hematocrit 36.8 % (37.0-47.0); Hemoglobin 11.2 g/dl (12.0-16.0); Imm Gran Abs Auto 0.05 X10*3/uL (0.00-0.03); Imm Gran Pct Auto 0.6 % (0.0-0.4); Lymphocytes Absolute Auto 1.3 X10*3/uL (1.2-4.9); MANUAL DIFF FLAG NO; Mean Corpuscular HGB Conc 30.4 g/dl (31.0-35.0); Mean Corpuscular Hemoglobin 23.7 pg (27.0-33.0); Mean Corpuscular Volume 77.8 fL (80.0-98.0); Mean Platelet Volume 10.6 fL (9.4-12.3); Monocytes Absolute Auto 0.6 X10*3/uL (0.1-1.2); Monocytes Percent Auto 6.7 % (2-11); Neutrophils Absolute Auto 6.3 x10*3/uL (2.0-8.3); Neutrophils Percent Auto 75.1 % (45-73); Platelet Count 292 X10*3/uL (160-400); Red Blood Count 4.73 X10*6/uL (4.20-5.50); Red Cell Distribution Width 17.3 % (11.0-16.0); White Blood Count 8.4 X10*3/uL (4.8-10.8)
[2024-04-25 12:49] LABS: Alanine Aminotransferase 17 U/L (0-31); Albumin Level 4.2 g/dL (3.5-5.0); Alkaline Phosphatase 64 U/L (39-117); Anion Gap 11 (12-20); Aspartate Amino Transferase 25 U/L (5-31); Bilirubin Total 0.2 mg/dL (0.0-1.0); Blood Urea Nitrogen 9 mg/dL (9-16); Calcium 9.1 mg/dL (8.4-10.2); Carbon Dioxide 26 mmol/L (22-29); Chloride 107 mmol/L (96-108); Creatinine Clr Calc Pharmacy 118.4; Estimated Glomerular Filt Rate > 60; Glucose Random 106 mg/dL (60-115); HCG Quantitative < 2 mIU/mL; Potassium 3.7 mmol/L (3.3-5.1); Sodium 140 mmol/L (135-145); Total Protein 7.2 g/dL (6.5-8.0)
[2024-04-25 16:25] VITALS: BP 127/79; PULSE 73; RESP 18; TEMP 36.6; O2SAT 100
[2024-04-25] MEDS: Ketorolac Tromethamine 15 MG/ML VIAL IVPUSH (16:41)
[2024-04-25] MEDS: diphenhydrAMINE HCL 50 MG/ML VIAL 25 MG IVPUSH (16:41)
[2024-04-25] MEDS: Metoclopramide HCl 10 MG/2 ML VIAL IVPUSH (16:41)
[2024-04-25 17:50] VITALS: BP 127/79; PULSE 73; RESP 18; TEMP 36.6; O2SAT 100
== END 2024-04-25 17:50 | disposition home or self-care (01) ==
PROVIDERS: Physician Assistant Medical; Emergency Provider Emergency Medicine; PCP Internal Medicine
DX: G43.909 Migraine, unspecified, not intractable, without status migrainosus (principal); R11.2 Nausea with vomiting, unspecified; M54.2 Cervicalgia; Z79.899 Other long term (current) drug therapy
CPT/HCPCS: 36415; 80053; 84702; 85025; 96374; 96375; 99284; J1200; J1885; J2765

== ENCOUNTER 2024-05-05 15:07 | Outpatient (AMB) | payer OTHER, SELFPAY ==
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
== END 2024-05-05 15:36 | disposition home or self-care (01) ==
PROVIDERS: PCP Internal Medicine; Visit Provider Clinical Nurse Specialist Psychiatric/Mental Health
DX: F41.1 Generalized anxiety disorder (principal); F43.10 Post-traumatic stress disorder, unspecified; F33.1 Major depressive disorder, recurrent, moderate
CPT/HCPCS: 90792

== ENCOUNTER → 2024-05-05 15:07 | Outpatient (BNVA) | payer OTHER, SELFPAY | PROVIDERS: PCP Internal Medicine; Visit Provider Clinical Nurse Specialist Psychiatric/Mental Health | DX: F41.1 Generalized anxiety disorder (principal); F43.10 Post-traumatic stress disorder, unspecified; F33.1 Major depressive disorder, recurrent, moderate | CPT/HCPCS: 90792 ==